=== PATIENT | male | born 1995 | race Hispanic/Latino ===

== ENCOUNTER 2018-11-07 06:46 | Emergency (ER) | payer SELFPAY ==
--- NOTE | 2018-11-07 07:22 | ER ---
Nurse's Notes [facility] Name: Javier Castillo Age: 22 yrs Sex: Male : 1995 Arrival Date: 11/07/2018 Time: 06:51 Bed 13 Private MD: Diagnosis: Urethritis and urethral syndrome Presentation: 11/07 06:59 Presenting complaint: Patient states: Pain with urination x 2 days and blood; States lp1 frequency, low back pain, fever. Transition of care: patient was not received from another setting of care. Onset of symptoms was November 07, 2018. Risk Assessment: Do you want to hurt yourself or someone else? Patient reports no desire to harm self or others. Initial Sepsis Screen: Does the patient meet any 2 criteria? No. Patient's initial sepsis screen is negative. Does the patient have a suspected source of infection? No. Patient's initial sepsis screen is negative. Care prior to arrival: None. 06:59 Method Of Arrival: Ambulatory lp1 06:59 Acuity: MOIRA 3 lp1 Triage Assessment: 07:06 General: Appears in no apparent distress. comfortable, Behavior is calm, cooperative. rb1 Historical: - Allergies: 07:01 Sulfa (Sulfonamide Antibiotics); lp1 - Home Meds: 07:01 None [Active]; lp1 - PMHx: 07:01 None; lp1 - PSHx: 07:01 None; lp1 - Immunization history:: Adult Immunizations up to date. - Social history:: Smoking status: Patient uses tobacco products, denies chronic smoking, but will smoke occasionally. - Ebola Screening: : No symptoms or risks identified at this time. Screenin:02 Abuse screen: Denies threats or abuse. Denies injuries from another. Nutritional lp1 screening: No deficits noted. Tuberculosis screening: No symptoms or risk factors identified. Fall Risk None identified. Assessment: 07:06 General: Appears in no apparent distress. comfortable, Behavior is calm, cooperative. rb1 07:06 Pain: Complains of pain in low back Pain currently is 8 out of 10 on a pain scale. Pain rb1 began x 2 days. Neuro: Level of Consciousness is awake, alert, obeys commands, Oriented to person, place, time, situation. 07:06 Cardiovascular: Capillary refill < 3 seconds is brisk in bilateral fingers. rb1 Respiratory: Airway is patent Respiratory effort is even, unlabored, Respiratory pattern is regular, symmetrical. GI: No signs and/or symptoms were reported involving the gastrointestinal system. : Reports pain with urination, urinary frequency, blood in urine. Derm: Skin is dry, Skin is normal, Skin temperature is warm. 07:56 Reassessment: Discharge pending due to shot time. rb1 Vital Signs: 07:01 BP 154 / 77; Pulse 80; Resp 18; Temp 98.2(O); Pulse Ox 99% on R/A; Weight 99.79 kg; lp1 Height 5 ft. 9 in. (175.26 cm); Pain 0/10; 07:01 Body Mass Index 32.49 (99.79 kg, 175.26 cm) lp1 ED Course: 06:51 Patient arrived in ED. ag3 06:58 Jayne Louise, RN is Primary Nurse. lp1 07:01 Triage completed. lp1 07:02 Arm band placed on right wrist. lp1 07:06 Patient has correct armband on for positive identification. Bed in low position. Call rb1 light in reach. Side rails up X 1. Pulse ox on. NIBP on. 07:08 Dimitrios Grimes MD is Attending Physician. kdr 07:14 [facility] snw 08:08 No provider procedures requiring assistance completed. Patient did not have IV access rb1 during this emergency room visit. Administered Medications: 07:50 Drug: Rocephin (cefTRIAXone) 1 grams Route: IM; Site: left gluteus; rb1 08:08 Follow up: Response: No adverse reaction hb 07:52 Drug: Zithromax 1 grams Route: PO; rb1 08:08 Follow up: Response: No adverse reaction hb 07:52 Drug: Flagyl 2 grams Route: PO; rb1 08:08 Follow up: Response: No adverse reaction hb Outcome: 07:22 Discharge ordered by . snw 08:08 Discharged to home ambulatory. hb 08:08 Condition: stable 08:08 Discharge instructions given to patient, Instructed on discharge instructions, follow up and referral plans. medication usage, Demonstrated understanding of instructions, follow-up care, medications. 08:09 Patient left the ED. hb Signatures: Dimitrios Grimes MD MD kdr Rhianna Al FNP-C [employer]-Csnw Jayne Louise, RN RN lp1 Ruby Bloom, RN RN rb1 Taisha Falcon, RN RN Anny Perez ag3 Corrections: (The following items were deleted from the chart) 09:02 07:06 General: Appears in no apparent distress. comfortable, Behavior is calm, rb1 cooperative, rb1
--- NOTE | 2018-11-07 07:22 | EDPHYS ---
Physician Documentation [facility] Name: Javier Castillo Age: 22 yrs Sex: Male : 1995 Arrival Date: 11/07/2018 Time: 06:51 Bed 13 Private MD: ED Physician Dimitrios Grimes HPI: 11/07 07:33 This 22 yrs old Male presents to ER via Ambulatory with complaints of Pain snw With Urination. 07:33 The patient presents with feels like razor blades are coming out during urination. snw Onset: The symptoms/episode began/occurred suddenly, 2 day(s) ago, and became persistent. Severity of symptoms: At their worst the symptoms were moderate, severe. The patient has not experienced similar symptoms in the past. The patient has not recently seen a physician. recent unprotected intercourse. Historical: - Allergies: 07:01 Sulfa (Sulfonamide Antibiotics); lp1 - Home Meds: 07:01 None [Active]; lp1 - PMHx: 07:01 None; lp1 - PSHx: 07:01 None; lp1 - Immunization history:: Adult Immunizations up to date. - Social history:: Smoking status: Patient uses tobacco products, denies chronic smoking, but will smoke occasionally. - Ebola Screening: : No symptoms or risks identified at this time. ROS: 07:24 Constitutional: Negative for fever, chills, and weight loss, Eyes: Negative for injury, snw pain, redness, and discharge, ENT: Negative for injury, pain, and discharge, Neck: Negative for injury, pain, and swelling, Cardiovascular: Negative for chest pain, palpitations, and edema, Respiratory: Negative for shortness of breath, cough, wheezing, and pleuritic chest pain, Abdomen/GI: Negative for abdominal pain, nausea, vomiting, diarrhea, and constipation, Back: Negative for injury and pain, MS/Extremity: Negative for injury and deformity, Skin: Negative for injury, rash, and discoloration, Neuro: Negative for headache, weakness, numbness, tingling, and seizure, Psych: Negative for depression, anxiety, suicide ideation, homicidal ideation, and hallucinations. 07:24 : Positive for urinary symptoms, burning with urination, Negative for urinary frequency, small amounts, hematuria, penile discharge, penile pain, testicular pain Exam: 07:23 Constitutional: This is a well developed, well nourished patient who is awake, alert, snw and in no acute distress. Head/Face: Normocephalic, atraumatic. Eyes: Pupils equal round and reactive to light, extra-ocular motions intact. Lids and lashes normal. Conjunctiva and sclera are non-icteric and not injected. Cornea within normal limits. Periorbital areas with no swelling, redness, or edema. ENT: Nares patent. No nasal discharge, no septal abnormalities noted. Tympanic membranes are normal and external auditory canals are clear. Oropharynx with no redness, swelling, or masses, exudates, or evidence of obstruction, uvula midline. Mucous membranes moist. Neck: Trachea midline, no thyromegaly or masses palpated, and no cervical lymphadenopathy. Supple, full range of motion without nuchal rigidity, or vertebral point tenderness. No Meningismus. Chest/axilla: Normal chest wall appearance and motion. Nontender with no deformity. No lesions are appreciated. Cardiovascular: Regular rate and rhythm with a normal S1 and S2. No gallops, murmurs, or rubs. Normal PMI, no JVD. No pulse deficits. Respiratory: Lungs have equal breath sounds bilaterally, clear to auscultation and percussion. No rales, rhonchi or wheezes noted. No increased work of breathing, no retractions or nasal flaring. Abdomen/GI: Soft, non-tender, with normal bowel sounds. No distension or tympany. No guarding or rebound. No evidence of tenderness throughout. Back: No spinal tenderness. No costovertebral tenderness. Full range of motion. Skin: Warm, dry with normal turgor. Normal color with no rashes, no lesions, and no evidence of cellulitis. MS/ Extremity: Pulses equal, no cyanosis. Neurovascular intact. Full, normal range of motion. Neuro: Awake and alert, GCS 15, oriented to person, place, time, and situation. Cranial nerves II-XII grossly intact. Motor strength 5/5 in all extremities. Sensory grossly intact. Cerebellar exam normal. Normal gait. Psych: Awake, alert, with orientation to person, place and time. Behavior, mood, and affect are within normal limits. Vital Signs: 07:01 BP 154 / 77; Pulse 80; Resp 18; Temp 98.2(O); Pulse Ox 99% on R/A; Weight 99.79 kg; lp1 Height 5 ft. 9 in. (175.26 cm); Pain 0/10; 07:01 Body Mass Index 32.49 (99.79 kg, 175.26 cm) lp1 MDM: 07:14 Patient medically screened. snw 07:25 Data reviewed: vital signs, nurses notes. Data interpreted: Pulse oximetry: on room air snw is 99 %. Interpretation: normal. Counseling: I had a detailed discussion with the patient and/or guardian regarding: the historical points, exam findings, and any diagnostic results supporting the discharge/admit diagnosis, the presence of at least one elevated blood pressure reading (>120/80) during this emergency department visit, the need for outpatient follow up, to return to the emergency department if symptoms worsen or persist or if there are any questions or concerns that arise at home. Special discussion: Based on the history and exam findings, there is no indication for further emergent testing or inpatient evaluation. STI clinic. Administered Medications: 07:50 Drug: Rocephin (cefTRIAXone) 1 grams Route: IM; Site: left gluteus; rb1 08:08 Follow up: Response: No adverse reaction hb 07:52 Drug: Zithromax 1 grams Route: PO; rb1 08:08 Follow up: Response: No adverse reaction hb 07:52 Drug: Flagyl 2 grams Route: PO; rb1 08:08 Follow up: Response: No adverse reaction hb Disposition: 11:48 Co-signature as Attending Physician, Dimitrios Grimes MD I agree with the assessment and kdr plan of care. Disposition: 11/07/18 07:22 Discharged to Home. Impression: Urethritis and urethral syndrome. - Condition is Stable. - Discharge Instructions: Sexually Transmitted Disease, Urethritis, Adult, Safe Sex. - Medication Reconciliation Form, Thank You Letter, Antibiotic Education, Prescription Opioid Use form. - Follow up: Private Physician; When: 2 - 3 days; Reason: Recheck today's complaints, Continuance of care, Re-evaluation by your physician. Follow up: Emergency Department; When: As needed; Reason: Worsening of condition. Signatures: Dimitrios Grimes MD MD kdr Therrien, Shelly, REAL ESTATE SALESPERSON-C REAL ESTATE SALESPERSON-Csnw Jayne Louise RN RN lp1 Ruby Bloom, RN RN rb1 Taisha Falcon RN RN hb Corrections: (The following items were deleted from the chart) 08:09 07:22 11/07/2018 07:22 Discharged to Home. Impression: Urethritis and urethral hb syndrome. Condition is Stable. Forms are Medication Reconciliation Form, Thank You Letter, Antibiotic Education, Prescription Opioid Use. Follow up: Private Physician; When: 2 - 3 days; Reason: Recheck today's complaints, Continuance of care, Re-evaluation by your physician. Follow up: Emergency Department; When: As needed; Reason: Worsening of condition. snw
[2018-11-07] MEDS ORDERED: CEFTRIAXONE 1000 MG/VIAL ONE (07:55)
[2018-11-07] MEDS ORDERED: metroNIDAZOLE 500 MG TABLET ONE (07:55)
[2018-11-07] MEDS ORDERED: AZITHROMYCIN 250 MG TAB ONE (07:58)
[2018-11-07 08:15] VITALS: BP 154/77; TEMP 98.2; O2SAT 99
== END 2018-11-07 08:09 | disposition home or self-care (01) ==
LOC: ER 06:46
DX: N34.3 Urethral syndrome, unspecified (principal); N34.2 Other urethritis; Z72.0 Tobacco use; Z88.2 Allergy status to sulfonamides
CPT/HCPCS: 96372; 99283

== ENCOUNTER 2019-04-07 14:35 | Emergency (ER) | payer SELFPAY ==
--- NOTE | 2019-04-07 16:41 | EDPHYS ---
Physician Documentation [facility] Name: Javier Castillo Age: 23 yrs Sex: Male : 1995 Arrival Date: 04/07/2019 Time: 14:38 Bed Treatment Private MD: ED Physician Valente Cardenas HPI: 04/07 16:47 This 23 yrs old Male presents to ER via Ambulatory with complaints of Chest kb Pain, muscle pain. 16:47 The patient or guardian reports chest pain that is located primarily in the anterior kb chest wall, right. The pain does not radiate. Associated signs and symptoms: The patient has no apparent associated signs or symptoms. The chest pain is described as sharp. Duration: The patient or guardian reports multiple episodes. Modifying factors: The symptoms are alleviated by remaining still, rest, the symptoms are aggravated by activity, movement. Severity of pain: At its worst the pain was mild moderate in the emergency department the pain is unchanged. The patient has not experienced similar symptoms in the past. The patient has not recently seen a physician. Pt reports he started having right-sided chest pain while lifting weights a few weeks ago. States it got worse every time he lifted so he quit lifting for 2 weeks. Went back to the gym 2 days ago and it started hurting again. States it only hurts when he raises his arm and stretches his pec muscle or lifts weights. . Historical: - Allergies: 14:45 Sulfa (Sulfonamide Antibiotics); hj - PMHx: 14:45 None; hj - PSHx: 14:45 None; hj - Immunization history:: Adult Immunizations up to date. - Social history:: Smoking status: Patient/guardian denies using tobacco, Patient/guardian denies using alcohol. - Ebola Screening: : Patient negative for fever greater than or equal to 101.5 degrees Fahrenheit, and additional compatible Ebola Virus Disease symptoms Patient denies exposure to infectious person Patient denies travel to an Ebola-affected area in the 21 days before illness onset. ROS: 16:45 Constitutional: Negative for fever, chills, and weight loss, ENT: Negative for injury, kb pain, and discharge, Neck: Negative for injury, pain, and swelling, Respiratory: Negative for shortness of breath, cough, wheezing, and pleuritic chest pain, Abdomen/GI: Negative for abdominal pain, nausea, vomiting, diarrhea, and constipation, Back: Negative for injury and pain, : Negative for injury, bleeding, discharge, and swelling, MS/Extremity: Negative for injury and deformity, Skin: Negative for injury, rash, and discoloration, Neuro: Negative for headache, weakness, numbness, tingling, and seizure. 16:45 Cardiovascular: Positive for chest pain, with movement, of the anterior aspect of right upper chest. Exam: 16:45 Constitutional: This is a well developed, well nourished patient who is awake, alert, kb and in no acute distress. Head/Face: Normocephalic, atraumatic. Neck: Trachea midline, no thyromegaly or masses palpated, and no cervical lymphadenopathy. Supple, full range of motion without nuchal rigidity, or vertebral point tenderness. No Meningismus. Chest/axilla: Normal chest wall appearance and motion. Nontender with no deformity. No lesions are appreciated. Cardiovascular: Regular rate and rhythm with a normal S1 and S2. No gallops, murmurs, or rubs. Normal PMI, no JVD. No pulse deficits. Respiratory: Lungs have equal breath sounds bilaterally, clear to auscultation and percussion. No rales, rhonchi or wheezes noted. No increased work of breathing, no retractions or nasal flaring. Abdomen/GI: Soft, non-tender, with normal bowel sounds. No distension or tympany. No guarding or rebound. No evidence of tenderness throughout. Skin: Warm, dry with normal turgor. Normal color with no rashes, no lesions, and no evidence of cellulitis. MS/ Extremity: Pulses equal, no cyanosis. Neurovascular intact. Full, normal range of motion. Neuro: Awake and alert, GCS 15, oriented to person, place, time, and situation. Cranial nerves II-XII grossly intact. Motor strength 5/5 in all extremities. Sensory grossly intact. Cerebellar exam normal. Normal gait. 16:46 ECG was reviewed by the Attending Physician. Vital Signs: 14:43 BP 133 / 56; Pulse 61; Resp 18; Temp 98.6(TE); Pulse Ox 100% on R/A; Weight 90.72 kg; hj Height 5 ft. 10 in. (177.80 cm); Pain 5/10; 16:48 BP 128 / 60; Pulse 65; Resp 18; Pulse Ox 100% on R/A; hj 14:43 Body Mass Index 28.70 (90.72 kg, 177.80 cm) MDM: 15:45 Patient medically screened. kb 16:46 Data reviewed: vital signs, nurses notes. Data interpreted: Pulse oximetry: on room air kb is 100 %. Interpretation: normal. Counseling: I had a detailed discussion with the patient and/or guardian regarding: the historical points, exam findings, and any diagnostic results supporting the discharge/admit diagnosis, radiology results, the need for outpatient follow up, a family practitioner, to return to the emergency department if symptoms worsen or persist or if there are any questions or concerns that arise at home. 04/07 15:02 Order name: Chest Pa And Lat (2 Views) XRAY snw 04/07 14:41 Order name: EKG - Nurse/Tech; Complete Time: 16:41 EC:46 Rate is 49 beats/min. Rhythm is regular, Sinus bradycardia. QRS [place] is Normal. MO kb interval is normal at 156 msec. QRS interval is normal at 90 msec. QT interval is normal at 364 msec. Clinical impression: Sinus bradycardia. Interpreted by me. Reviewed by me. Administered Medications: No medications were administered Disposition: 04/08 07:36 Co-signature as Attending Physician, Valente Cardenas MD I agree with the assessment and viv plan of care. Disposition: 04/07/19 16:40 Discharged to Home. Impression: Other chest pain - right chest wall pain, musculoskeletal. - Condition is Stable. - Discharge Instructions: Chest Wall Pain, [id number], Muscle Strain, [id number]. - Medication Reconciliation Form, Thank You Letter, Antibiotic Education, Prescription Opioid Use, Work release form form. - Follow up: Emergency Department; When: As needed; Reason: Worsening of condition. Follow up: Private Physician; When: 2 - 3 days; Reason: Recheck today's complaints, Continuance of care, Re-evaluation by your physician. Signatures: Dispatcher [employer] Jina Singh, CENTRAL OFFICE TROUBLE SHOOTER-C CENTRAL OFFICE TROUBLE SHOOTER-Valente Medina MD MD cha Joaquin, Henry, RN RN hj Corrections: (The following items were deleted from the chart) 04/07 16:50 16:40 04/07/2019 16:40 Discharged to Home. Impression: Other chest pain - right chest hj wall pain, musculoskeletal. Condition is Stable. Forms are Medication Reconciliation Form, Thank You Letter, Antibiotic Education, Prescription Opioid Use. Follow up: Emergency Department; When: As needed; Reason: Worsening of condition. Follow up: Private Physician; When: 2 - 3 days; Reason: Recheck today's complaints, Continuance of care, Re-evaluation by your physician. kb
--- NOTE | 2019-04-07 16:41 | ER ---
Nurse's Notes [facility] Name: Javier Castillo Age: 23 yrs Sex: Male : 1995 Arrival Date: 04/07/2019 Time: 14:38 Bed Treatment Private MD: Diagnosis: Other chest pain-right chest wall pain, musculoskeletal Presentation: 04/07 14:42 Presenting complaint: Patient states: i lifted weights a few weeks ago and my R upper hj chest hurts; so i didn't lift weights for a while when i came back to the gymn the pain is till there; denies SOB;. Transition of care: patient was not received from another setting of care. Onset of symptoms was April 07, 2019. Risk Assessment: Do you want to hurt yourself or someone else? Patient reports no desire to harm self or others. Initial Sepsis Screen: Does the patient meet any 2 criteria? No. Patient's initial sepsis screen is negative. Does the patient have a suspected source of infection? No. Patient's initial sepsis screen is negative. Care prior to arrival: None. 14:42 Method Of Arrival: Ambulatory 14:42 Acuity: MOIRA 4 hj Triage Assessment: 15:48 General: Appears in no apparent distress. uncomfortable, Behavior is calm, cooperative, hj appropriate for age. Pain: Complains of pain in anterior aspect of right upper chest. Cardiovascular: Capillary refill < 3 seconds Patient's skin is warm and dry. Historical: - Allergies: 14:45 Sulfa (Sulfonamide Antibiotics); hj - PMHx: 14:45 None; hj - PSHx: 14:45 None; hj - Immunization history:: Adult Immunizations up to date. - Social history:: Smoking status: Patient/guardian denies using tobacco, Patient/guardian denies using alcohol. - Ebola Screening: : Patient negative for fever greater than or equal to 101.5 degrees Fahrenheit, and additional compatible Ebola Virus Disease symptoms Patient denies exposure to infectious person Patient denies travel to an Ebola-affected area in the 21 days before illness onset. Screenin:48 Abuse screen: Denies threats or abuse. Denies injuries from another. Nutritional hj screening: No deficits noted. Tuberculosis screening: No symptoms or risk factors identified. Fall Risk None identified. Assessment: 15:48 Pain: Pain does not radiate. Pain began. hj 15:48 General: Appears in no apparent distress. uncomfortable, Behavior is calm, cooperative, hj appropriate for age. Neuro: Level of Consciousness is awake, alert, obeys commands, Oriented to person, place, time, situation, Appropriate for age. Cardiovascular: Capillary refill < 3 seconds Patient's skin is warm and dry. Respiratory: Airway is patent Respiratory effort is even, unlabored, Respiratory pattern is regular, symmetrical. GI: No signs and/or symptoms were reported involving the gastrointestinal system. : No signs and/or symptoms were reported regarding the genitourinary system. EENT: No signs and/or symptoms were reported regarding the EENT system. Derm: No signs and/or symptoms reported regarding the dermatologic system. Musculoskeletal: Reports pain in anterior aspect of right upper chest. 16:38 Reassessment: XRAY taken;. hj Vital Signs: 14:43 BP 133 / 56; Pulse 61; Resp 18; Temp 98.6(TE); Pulse Ox 100% on R/A; Weight 90.72 kg; hj Height 5 ft. 10 in. (177.80 cm); Pain 5/10; 16:48 BP 128 / 60; Pulse 65; Resp 18; Pulse Ox 100% on R/A; hj 14:43 Body Mass Index 28.70 (90.72 kg, 177.80 cm) hj ED Course: 14:38 Patient arrived in ED. rg4 14:43 Triage completed. hj 14:43 Arm band placed on right wrist. hj 15:44 Jina Soot FNP-C is [facility]. kb 15:44 Valente Cardenas MD is Attending Physician. kb 15:46 Hiro Centeno RN is Primary Nurse. hj 15:48 Patient has correct armband on for positive identification. Bed in low position. Call hj light in reach. Side rails up X 1. Pulse ox on. NIBP on. 15:49 Patient maintains SpO2 saturation greater than 95% on room air. hj 16:24 EKG done, by vocational rehabilitation technician. reviewed by Jina MATTHEWS. sm3 16:48 No provider procedures requiring assistance completed. Patient did not have IV access hj during this emergency room visit. Administered Medications: No medications were administered Outcome: 16:40 Discharge ordered by . kb 16:48 Discharged to home ambulatory. hj 16:48 Condition: stable 16:48 Discharge instructions given to patient, Instructed on discharge instructions, follow up and referral plans. Demonstrated understanding of instructions, follow-up care. 16:50 Patient left the ED. Signatures: Jina Soto FNP-C FNP-Hiro Meraz, RN RN Ariadne Villafuerte rg4 Haylie Murphy sm3 Corrections: (The following items were deleted from the chart) 14:45 14:43 Pulse 61bpm; Resp 18bpm; Pulse Ox 100% RA; Temp 98.6F Temporal; 90.72 kg; Height hj 5 ft. 10 in.; BMI: 28.7; Pain 5/10; hj 15:12 14:42 Acuity: MOIRA 4 hj hj 15:37 14:42 Acuity: MOIRA 3 hj hj 15:48 14:42 Presenting complaint: Patient states: i lifted weights a few weeks ago and my R hj upper chest hurts; so i didn't left weights for a while when i came back to the gymn the pain is till there; denies SOB; hj
--- NOTE | 2019-04-07 16:57 | RAD REPORT ---
EXAM DESCRIPTION: Nik Bates (2 Views)04/07/2019 4:36 pm CLINICAL HISTORY: Chest pain COMPARISON: 2012 FINDINGS: The lungs appear clear of acute infiltrate. The heart is normal size IMPRESSION: No acute abnormalities displayed
[2019-04-07 17:12] VITALS: TEMP 98.6; O2SAT 100
[2019-04-07 17:13] VITALS: BP 128/60
--- NOTE | 2019-04-08 11:38 | EKG ---
Test Date: 2019-04-07 Test Time: 16:22:59 Health Information Specialist: CECILLE MEASUREMENT RESULTS: Intervals: Rate: 49 FL: 156 QRSD: 90 QT: 364 QTc: 328 [place]: P: 38 FL: 156 QRS: 78 T: 38 INTERPRETIVE STATEMENTS: Marked sinus bradycardia Abnormal ECG Compared to ECG 04/25/2017 02:58:03 Sinus rhythm no longer present Electronically Signed On 04-08-19 11:36:02 CDT by Jarek Pastor
== END 2019-04-07 16:50 | disposition home or self-care (01) ==
LOC: ER 14:35
DX: M79.18 Myalgia, other site (principal); Z88.2 Allergy status to sulfonamides
CPT/HCPCS: 71046; 93005; 99284

== ENCOUNTER 2019-05-01 07:58 | Emergency (ER) | payer SELFPAY ==
[2019-05-01 09:03] LABS: Absolute Lymphocytes (CBC) 1.9 K/uL (0.7-4.9); Basophils % 0.9 % (0-1.3); Eosinophils % 2.2 % (0-4.4); Hematocrit 48.5 % (39.6-49.0); Lymphocytes % 35.8 % (15.3-44.8); Monocytes % 7.8 % (3.3-12.3)
[2019-05-01 09:07] LABS: Protime INR 1.05
[2019-05-01 09:16] LABS: Albumin 3.8 g/dL (3.4-5.0); Bilirubin Direct 0.1 mg/dL (0-0.2); Bilirubin Total 0.4 mg/dL (0.2-1.0); Magnesium 2.3 mg/dL (1.8-2.4); Potassium 4.3 mmol/L (3.5-5.1)
--- NOTE | 2019-05-01 10:57 | RAD REPORT ---
EXAM DESCRIPTION: CT - Abdomen Pelvis W Contrast - 05/01/2019 10:41 am CLINICAL HISTORY: Abdominal pain. Hematochezia COMPARISON: 2017 TECHNIQUE: Computed axial tomography of the abdomen and pelvis was obtained. 100 cc Isovue-300 is ad ministered intravenously. Oral contrast was given. All CT scans are performed using dose optimization technique as appropriate and may include automated exposure control or mA/KV adjustment according to patient size. FINDINGS: The pancreas has a heterogeneous density but is unchanged from 2015. Presumably this is not significa nt. The liver, spleen, pancreas, adrenals and kidneys appear unremarkable. The appendix is normal caliber. There is no evidence of diverticulitis IMPRESSION: No acute abnormality displayed
--- NOTE | 2019-05-01 11:22 | ER ---
Nurse's Notes [facility] Name: Javier Castillo Age: 23 yrs Sex: Male : 1995 Arrival Date: 05/01/2019 Time: 08:01 Bed 8 Private MD: None, None Diagnosis: Unspecified abdominal pain Presentation: 05/01 08:05 Presenting complaint: Patient states: intermittent lower abd pain and rectal bleeding x aa5 2 years ago. Pt states "I bleed for like a month and then it stops and comes back again". Pt denies nausea, denies vomiting. 08:05 Transition of care: patient was not received from another setting of care. Onset of aa5 symptoms was 2016. Risk Assessment: Do you want to hurt yourself or someone else? Patient reports no desire to harm self or others. Initial Sepsis Screen: Does the patient meet any 2 criteria? No. Patient's initial sepsis screen is negative. Does the patient have a suspected source of infection? No. Patient's initial sepsis screen is negative. Care prior to arrival: None. 08:05 Acuity: MOIRA 3 aa5 08:05 Method Of Arrival: Ambulatory aa5 Historical: - Allergies: 08:05 Sulfa (Sulfonamide Antibiotics); aa5 - Home Meds: 08:05 None [Active]; aa5 - PMHx: 08:05 Asthma; aa5 - PSHx: 08:05 None; aa5 - Immunization history:: Flu vaccine is not up to date. - Social history:: Smoking status: Patient uses tobacco products, smokes one-half pack cigarettes per day, Patient uses alcohol, occasionally. - Ebola Screening: : No symptoms or risks identified at this time. Screenin:09 Abuse screen: Denies threats or abuse. Nutritional screening: No deficits noted. aa5 Tuberculosis screening: No symptoms or risk factors identified. Fall Risk None identified. Assessment: 08:05 General: Appears comfortable, Behavior is calm, cooperative. Pain: Complains of pain in aa5 right lower quadrant and left lower quadrant Pain does not radiate. Pain currently is 7 out of 10 on a pain scale. Quality of pain is described as crampy, Pain began 2 years ago Is intermittent. Neuro: Level of Consciousness is awake, alert, obeys commands, Oriented to person, place, time, situation. Cardiovascular: Heart tones S1 S2 present Rhythm is regular. Respiratory: Airway is patent Respiratory effort is even, unlabored, Respiratory pattern is regular, symmetrical. GI: Abdomen is round non-distended, Bowel sounds present X 4 quads. Abd is soft and non tender X 4 quads. Reports rectal bleeding, Reports last rectal bleeding episode was this morning. Patient currently denies nausea, vomiting. : No signs and/or symptoms were reported regarding the genitourinary system. EENT: No signs and/or symptoms were reported regarding the EENT system. Derm: Skin is pink, warm \\T\\ dry. Musculoskeletal: Range of motion: intact in all extremities. 08:54 Reassessment: Pt finished CT oral contrast, CT was notified. . aa5 09:15 Reassessment: Pt resting in bed with eyes closed, respirations even and unlabored, skin aa5 is pink/warm/dry. Awaiting CT scan, pt notified of wait time. . 10:11 Reassessment: Patient is alert, oriented x 3, equal unlabored respirations, skin aa5 warm/dry/pink. Pt ambulatory to restroom. Awaiting CT scan. 10:35 Reassessment: Pt to CT via wheelchair . aa5 11:53 Reassessment: Patient is alert, oriented x 3, equal unlabored respirations, skin aa5 warm/dry/pink. Vital Signs: 08:06 BP 140 / 79; Pulse 66; Resp 16 S; Temp 98.3(O); Pulse Ox 100% on R/A; Weight 95.25 kg aa5 (R); Height 5 ft. 10 in. (177.80 cm) (R); Pain 7/10; 09:15 BP 110 / 61; Pulse 49; Resp 16 S; Pulse Ox 98% on R/A; aa5 11:53 BP 122 / 63; Pulse 55; Resp 18 S; Temp 98.0(TE); Pulse Ox 100% on R/A; Pain 6/10; aa5 08:06 Body Mass Index 30.13 (95.25 kg, 177.80 cm) aa5 ED Course: 08:01 Patient arrived in ED. mr 08:02 None, None is Private Physician. mr 08:05 Valente Fletcher [facility]. cp 08:05 Miguel Bran MD is Attending Physician. cp 08:05 Arm band placed on Patient placed in an exam room, on a stretcher. aa5 08:05 Patient has correct armband on for positive identification. Bed in low position. Call aa5 light in reach. Side rails up X 1. 08:10 Mora Lima, RN is Primary Nurse. aa5 08:12 Triage completed. aa5 08:45 Initial lab(s) drawn, by vt, sent to lab. Inserted saline lock: 20 gauge in right 3 antecubital area, using aseptic technique. Blood collected. 08:55 Oral contrast reported to be complete. vm2 09:57 Basic Metabolic Panel Sent. sv 09:57 CBC with Diff Sent. sv 09:57 Creatinine for Radiology Sent. sv 09:57 Hepatic Function Sent. sv 09:57 Lipase Sent. sv 10:42 CT Abd/Pelvis - PO and IV Contrast In Process Unspecified. EDMS 11:21 Kuldeep Wilder MD is Referral Physician. cp 11:53 No provider procedures requiring assistance completed. IV discontinued, intact, aa5 bleeding controlled, No redness/swelling at site. Pressure dressing applied. Administered Medications: 11:52 Drug: Bentyl 20 mg Route: PO; aa5 11:52 Follow up: Response: Medication administered at discharge. aa5 Outcome: 11:21 Discharge ordered by MD. cp 11:53 Discharged to home ambulatory. aa5 11:53 Condition: good 11:53 Discharge instructions given to patient, Instructed on discharge instructions, follow up and referral plans. medication usage, Demonstrated understanding of instructions, follow-up care, medications, Prescriptions given X 2. 11:54 Patient left the ED. aa5 Signatures: Dispatcher [employer] EDLA Mala Cope RN RN sv Rivera, Mary mr Mora Lima RN RN aa5 Valente Fletcher PA PA cp McGuire, [facility] Corrections: (The following items were deleted from the chart) 10:45 09:10 BP 110 / 61; Pulse 49bpm; Resp 16bpm; Spontaneous; Pulse Ox 98% RA; aa5 aa5
--- NOTE | 2019-05-01 11:23 | EDPHYS ---
Physician Documentation [facility] Name: Javier Castillo Age: 23 yrs Sex: Male : 1995 Arrival Date: 05/01/2019 Time: 08:01 Bed 8 Private MD: None, None ED Physician Miguel Bran HPI: 05/01 08:40 This 23 yrs old Male presents to ER via Ambulatory with complaints of cp Abdominal Pain, Rectal Bleeding. 08:40 The patient presents with abdominal pain in the lower abdomen. cp 08:40 Onset: The symptoms/episode began/occurred intermittent times 2 years, became cp persistent 2 weeks ago. The symptoms do not radiate. Associated signs and symptoms: Pertinent positives: blood in stools, constipation, Pertinent negatives: diarrhea, fever, testicular pain, vomiting, weight loss. 08:40 The symptoms are described as crampy. cp Historical: - Allergies: 08:05 Sulfa (Sulfonamide Antibiotics); aa5 - Home Meds: 08:05 None [Active]; aa5 - PMHx: 08:05 Asthma; aa5 - PSHx: 08:05 None; aa5 - Immunization history:: Flu vaccine is not up to date. - Social history:: Smoking status: Patient uses tobacco products, smokes one-half pack cigarettes per day, Patient uses alcohol, occasionally. - Ebola Screening: : No symptoms or risks identified at this time. ROS: 08:45 Constitutional: Negative for body aches, chills, fever, poor PO intake, weight loss. cp 08:45 Eyes: Negative for injury, pain, redness, and discharge. cp 08:45 ENT: Negative for drainage from ear(s), ear pain, sore throat, difficulty swallowing, difficulty handling secretions. 08:45 Cardiovascular: Negative for chest pain, palpitations. 08:45 Respiratory: Negative for cough, shortness of breath, wheezing. 08:45 Abdomen/GI: Positive for constipation, abdominal cramps, rectal bleeding, Negative for vomiting, diarrhea, black/tarry stool. 08:45 Back: Negative for radiated pain. 08:45 : Negative for urinary symptoms, testicular pain 08:45 All other systems are negative. Exam: 08:55 Constitutional: The patient appears in no acute distress, alert, awake, non-toxic, well cp developed, well nourished. 08:55 Head/Face: Normocephalic, atraumatic. cp 08:55 Eyes: Periorbital structures: appear normal, Conjunctiva: normal, no exudate, no injection, Sclera: no appreciated abnormality, Lids and lashes: appear normal, bilaterally. 08:55 ENT: External ear(s): are unremarkable, Nose: is normal, Mouth: Lips: moist, Oral mucosa: pink and intact, moist, Posterior pharynx: Airway: no evidence of obstruction, patent. 08:55 Chest/axilla: Inspection: normal, Palpation: is normal, no crepitus, no tenderness. 08:55 Cardiovascular: Rate: normal, Rhythm: regular, Edema: is not appreciated, JVD: is not appreciated. 08:55 Respiratory: the patient does not display signs of respiratory distress, Respirations: normal, no use of accessory muscles, no retractions, no splinting, no tachypnea, labored breathing, is not present, Breath sounds: are clear throughout, no decreased breath sounds, no stridor, no wheezing. 08:55 Abdomen/GI: Inspection: abdomen appears normal, Bowel sounds: active, all quadrants, Palpation: soft, in all quadrants, nontender, in the right lower quadrant and left lower quadrant, rebound tenderness, is not appreciated, involuntary guarding, is not appreciated, Rectal exam: Stool: brown, guaiac positive. Vital Signs: 08:06 BP 140 / 79; Pulse 66; Resp 16 S; Temp 98.3(O); Pulse Ox 100% on R/A; Weight 95.25 kg aa5 (R); Height 5 ft. 10 in. (177.80 cm) (R); Pain 7/10; 09:15 BP 110 / 61; Pulse 49; Resp 16 S; Pulse Ox 98% on R/A; aa5 11:53 BP 122 / 63; Pulse 55; Resp 18 S; Temp 98.0(TE); Pulse Ox 100% on R/A; Pain 6/10; aa5 08:06 Body Mass Index 30.13 (95.25 kg, 177.80 cm) aa5 MDM: 08:10 Patient medically screened. cp 09:00 Differential diagnosis: diverticulitis, gastritis, pancreatitis, Peptic Ulcer Disease, cp Perf. Duodenal Ulcer, Perf. Gastric Ulcer, colitis. 11:20 Data reviewed: vital signs, nurses notes, lab test result(s), radiologic studies, CT cp scan. 11:20 Counseling: I had a detailed discussion with the patient and/or guardian regarding: the cp historical points, exam findings, and any diagnostic results supporting the discharge/admit diagnosis, lab results, radiology results, to return to the emergency department if symptoms worsen or persist or if there are any questions or concerns that arise at home. Response to treatment: the patient's symptoms have markedly improved after treatment, and as a result, I will discharge patient. Special discussion: Based on the patient's Hx, exam, and Dx evaluation, there is no indication for emergent surgery or inpatient Tx. It is understood by the patient/guardian that if the Sx's persist or worsen they need to return immediately for re-evaluation. 05/01 08:36 Order name: Basic Metabolic Panel cp 05/01 08:36 Order name: CBC with Diff cp 05/01 08:36 Order name: Creatinine for Radiology cp 05/01 08:36 Order name: Hepatic Function cp 05/01 08:36 Order name: Lipase cp 05/01 08:36 Order name: PT-INR; Complete Time: 09:53 cp 05/01 08:36 Order name: Ptt, Activated; Complete Time: 09:53 cp 05/01 08:36 Order name: Magnesium; Complete Time: 09:53 cp 05/01 08:36 Order name: CT Abd/Pelvis - PO and IV Contrast; Complete Time: 11:10 cp 05/01 08:37 Order name: Basic Metabolic Panel; Complete Time: 09:53 EDMS 05/01 09:53 Interpretation: Normal except: GFR 89. cp 05/01 08:37 Order name: CBC with Automated Diff; Complete Time: 09:53 EDMS 05/01 09:53 Interpretation: Normal except: RBC 5.50. cp 05/01 08:37 Order name: Creatinine (Radiology Only); Complete Time: 09:53 EDMS 05/01 08:37 Order name: Liver (Hepatic) Function; Complete Time: 09:53 EDMS 05/01 11:10 Interpretation: Normal except: AST 14. cp 05/01 08:37 Order name: Lipase; Complete Time: 09:53 EDMS 05/01 08:36 Order name: IV Saline Lock; Complete Time: 08:51 cp 05/01 08:36 Order name: Labs collected and sent; Complete Time: 08:51 cp Administered Medications: 11:52 Drug: Bentyl 20 mg Route: PO; aa5 11:52 Follow up: Response: Medication administered at discharge. aa5 Disposition: 05/01/19 11:21 Discharged to Home. Impression: Unspecified abdominal pain. - Condition is Stable. - Discharge Instructions: Abdominal Pain, Adult. - Prescriptions for Bentyl 20 mg Oral Tablet - take 1 tablet by ORAL route every 6 hours As needed; 30 tablet. Zofran 4 mg Oral Tablet - take 1 tablet by ORAL route every 12 hours As needed; 20 tablet. - Medication Reconciliation Form, Thank You Letter, Antibiotic Education, Prescription Opioid Use form. - Work release form (05/01/19 11:55). sv - Follow up: Kuldeep Wilder MD; When: 2 - 3 days; Reason: Recheck today's complaints. - Problem is an ongoing problem. - Symptoms have improved. Addendum: 05/02/2019 17:04 Co-signature as Attending Physician, Miguel Bran MD. g s Signatures: Dispatcher [employer] EDCT Mora Lima RN RN aa5 Valente Fletcher PA PA Miguel Bran MD MD Mala Cope RN sv Corrections: (The following items were deleted from the chart) 05/01 11:54 11:21 05/01/2019 11:21 Discharged to Home. Impression: Unspecified abdominal pain. aa5 Condition is Stable. Forms are Medication Reconciliation Form, Thank You Letter, Antibiotic Education, Prescription Opioid Use. Follow up: Kuldeep Wilder; When: 2 - 3 days; Reason: Recheck today's complaints. Problem is an ongoing problem. Symptoms have improved. cp
[2019-05-01] MEDS ORDERED: DICYCLOMINE HCL 10 MG CAP ONE (12:00)
[2019-05-01 12:18] VITALS: TEMP 98.3
[2019-05-01 12:19] VITALS: BP 110/61; O2SAT 98
== END 2019-05-01 11:54 | disposition home or self-care (01) ==
LOC: ER 07:58
DX: R10.30 Lower abdominal pain, unspecified (principal); F17.210 Nicotine dependence, cigarettes, uncomplicated; Z88.2 Allergy status to sulfonamides
CPT/HCPCS: 36415; 74177; 80048; 80076; 83690; 83735; 85025; 85610; 85730; 99284; Q9967

== ENCOUNTER 2022-05-11 23:08 | Emergency (ER) | payer SELFPAY ==
[2022-05-12 01:57] LABS: Absolute Lymphocytes (CBC) 0.5 K/uL (0.7-4.9); Hematocrit 45.7 % (39.6-49.0); Lymphocytes % 6.5 % (15.3-44.8); MCV 91.7 fL (80-100); MPV 7.6 fL (7.6-11.3); RBC Red Blood Cell Count 4.98 M/uL (4.33-5.43)
[2022-05-12 02:03] LABS: Urine Blood Negative (Negative); Urine Glucose Negative (Negative); Urine Protein Negative (Negative); Urine Specific Gravity >=1.030 (1.005-1.030)
[2022-05-12] MEDS ORDERED: NA CHLORIDE 0.9% 0 ML ONE (02:03)
[2022-05-12] MEDS ORDERED: ONDANSETRON 4 MG/2 ML VIAL ONE (02:03)
[2022-05-12 02:13] LABS: Albumin 3.3 g/dL (3.4-5.0); Bilirubin Total 0.3 mg/dL (0.2-1.0); Potassium 4.1 mmol/L (3.5-5.1); Protein, Total 6.6 g/dL (6.4-8.2)
[2022-05-12] MEDS ORDERED: ACETAMINOPHEN 500 MG TAB ONE (02:22)
[2022-05-12] MEDS ORDERED: CIPROFLOXACIN 400mg IV 400 MG/200 ML BAG IV ONE (02:23)
[2022-05-12] MEDS ORDERED: METRONIDAZOLE 500mg IVPB 500 MG/100 ML BAG IV ONE (02:23)
--- NOTE | 2022-05-12 03:41 | ER ---
Nurse's Notes [facility] Name: Javier Castillo Age: 26 yrs Sex: Male : 1995 Arrival Date: 05/11/2022 Time: 23:10 Bed 6 Private MD: Diagnosis: Abdominal tenderness;Fever, unspecified;Diarrhea, unspecified;Other specified noninfective gastroenteritis and colitis-PANCOLITIS Presentation: 05/11 23:19 Chief complaint: Patient states: Abd pain began two days ago. N/D, fever, body aches. ld1 Coronavirus screen: Client presents with at least one sign or symptom that may indicate coronavirus-19. Standard/surgical mask placed on the client. Ebola Screen: No symptoms or risks identified at this time. Initial Sepsis Screen: Does the patient meet any 2 criteria? No. Patient's initial sepsis screen is negative. Does the patient have a suspected source of infection? No. Patient's initial sepsis screen is negative. Risk Assessment: Do you want to hurt yourself or someone else? Patient reports no desire to harm self or others. Onset of symptoms was May 11, 2022. 23:19 Method Of Arrival: Ambulatory ld1 23:19 Acuity: MOIRA 3 ld1 Triage Assessment: 23:20 General: Appears in no apparent distress. comfortable, Behavior is calm, cooperative, ld1 appropriate for age. Pain: Complains of pain in abdomen Pain does not radiate. Pain currently is 8 out of 10 on a pain scale. Quality of pain is described as throbbing. EENT: No signs and/or symptoms were reported regarding the EENT system. Neuro: Level of Consciousness is awake, alert, obeys commands, Oriented to person, place, time, situation. Cardiovascular: Capillary refill < 3 seconds Patient's skin is warm and dry. Respiratory: Airway is patent Respiratory effort is even, unlabored. GI: Abdomen is round non-distended, Reports lower abdominal pain, upper abdominal pain, diarrhea, nausea. : No signs and/or symptoms were reported regarding the genitourinary system. Derm: No signs and/or symptoms reported regarding the dermatologic system. Musculoskeletal: No signs and/or symptoms reported regarding the musculoskeletal system. Historical: - Allergies: 23:20 Sulfa (Sulfonamide Antibiotics); ld1 - PMHx: 23:20 Asthma; ld1 - PSHx: 23:20 None; ld1 - Immunization history:: Adult Immunizations up to date, Client reports receiving the 2nd dose of the Covid vaccine, Last tetanus immunization:. - Social history:: Smoking status: Patient reports the use of cigarette tobacco products, smokes one-half pack cigarettes per day, Patient/guardian denies using alcohol. - Family history:: not pertinent. Screenin/08 02:08 Abuse screen: Denies threats or abuse. Denies injuries from another. Nutritional kd3 screening: No deficits noted. Tuberculosis screening: No symptoms or risk factors identified. Fall Risk IV access (20 points). Assessment: 02:09 GI: Bowel sounds present X 4 quads. Abd is soft and non tender. kd3 02:39 General: Appears in no apparent distress. Behavior is calm, cooperative. Neuro: Level kd3 of Consciousness is awake, alert, obeys commands, Oriented to person, place, time, situation. Respiratory: Airway is patent Trachea midline Respiratory effort is even, unlabored, Respiratory pattern is regular, symmetrical. Vital Signs: 05/11 23:19 BP 121 / 99; Pulse 94; Resp 18; Temp 99.5(TE); Pulse Ox 100% on R/A; Weight 92.08 kg; ld1 Height 5 ft. 9 in. (175.26 cm); Pain 8/10; 0708 02:09 BP 138 / 51; Pulse 74; Resp 18; Pulse Ox 98% ; kd3 02:09 Temp 100.2(O); kd3 02:40 BP 125 / 48; Pulse 76; Resp 18; Pulse Ox 98% ; kd3 02:46 Temp 99.9(O); kd3 03:59 BP 125 / 61 Supine; kd3 03:59 BP 120 / 65 Sitting; kd3 03:59 BP 123 / 57 Standing; kd3 03:59 Temp 98.4(O); kd3 05/11 23:19 Body Mass Index 29.98 (92.08 kg, 175.26 cm) ld1 ED Course: 05/11 23:10 Patient arrived in ED. mr 23:20 Triage completed. ld1 23:20 Arm band placed on right wrist. ld1 23:24 Flu Sent. ld1 23:24 COVID-19 SARS RT PCR (Document "Date of Onset" if Symptomatic) Sent. ld1 07 00:32 Valente Cardenas MD is Attending Physician. viv 01:34 Adeola Herrera, MAR is Primary Nurse. kd3 02:08 Patient has correct armband on for positive identification. kd3 02:08 No provider procedures requiring assistance completed. Inserted saline lock: 20 gauge kd3 in right antecubital area, using aseptic technique. Blood collected. 03:03 CT Abd/Pelvis - IV Contrast Only In Process Unspecified. EDMS 03:41 Salima Mark MD is Referral Physician. viv 04:10 IV discontinued, intact, bleeding controlled, No redness/swelling at site. Pressure kd3 dressing applied. Administered Medications: 02:08 Drug: NS 0.9% 1000 ml Route: IV; Rate: 1 bolus; Site: right antecubital; kd3 04:01 Follow up: Response: No adverse reaction; IV Status: Completed infusion kd3 02:08 Drug: Zofran (Ondansetron) 4 mg Route: IVP; Site: right antecubital; kd3 04:01 Follow up: Response: No adverse reaction kd3 02:19 Drug: Tylenol 1000 mg Route: PO; kd3 02:46 Follow up: Response: Temperature is decreased kd3 02:19 Drug: Flagyl (metroNIDAZOLE) 500 mg Volume: 100 ml; Route: IVPB; Rate: 200 ml/hr; kd3 Infused Over: 30 mins; Site: right antecubital; 02:45 Follow up: Response: No adverse reaction; IV Status: Completed infusion kd3 02:45 Drug: Cipro (ciprofloxacin) 400 mg Volume: 200 ml; Route: IVPB; Infused Over: 60 mins; kd3 Site: right antecubital; 03:59 Follow up: Response: No adverse reaction; IV Status: Completed infusion kd3 03:58 CANCELLED (Physician Discretion): NS 0.9% 1000 ml IV at 1 bolus Per protocol; 1000 mL kd3 bolus 03:59 Drug: Rocephin (cefTRIAXone) 1 grams Route: IV; Rate: per protocol; Site: right kd3 antecubital; 03:59 Follow up: Response: No adverse reaction; IV Status: Completed infusion kd3 Medication: 02:09 VIS not applicable for this client. kd3 Outcome: 03:41 Discharge ordered by . viv 04:00 Discharged to home ambulatory. kd3 04:00 Condition: stable 04:00 Condition: stable 04:00 Discharge instructions given to patient, Instructed on discharge instructions, follow up and referral plans. Demonstrated understanding of instructions, follow-up care, medications. 04:00 Prescriptions given X 5 kd3 04:11 Patient left the ED. kd3 Signatures: Dispatcher [employer] EDValente Gannon MD MD cha Rivera, Mary mr Melissa Roberson RN RN ld1 Adeola Herrera RN RN kd3
--- NOTE | 2022-05-12 03:41 | EDPHYS ---
Physician Documentation [facility] Name: Javier Castillo Age: 26 yrs Sex: Male : 1995 Arrival Date: 05/11/2022 Time: 23:10 Bed 6 Private MD: HYACINTH Physician Valente Cardenas HPI: 05/12 02:26 This 26 yrs old Male presents to ER via Ambulatory with complaints of viv Abdominal Cramping, Diarrhea, Nausea. 02:26 The patient presents with abdominal pain in the upper abdomen, in the lower abdomen, viv abdominal distention in the upper abdomen, in the lower abdomen. Onset: The symptoms/episode began/occurred 1 day(s) ago. The patient presents to the emergency department with nausea, diarrhea, abdominal pain, of the right upper quadrant, left upper quadrant, right lower quadrant and left lower quadrant. Onset: The symptoms/episode began/occurred 1 day(s) ago. Possible causes:. The symptoms are aggravated by nothing. The symptoms are alleviated by nothing. The symptoms do not radiate. Associated signs and symptoms: Pertinent positives: abdominal pain, diarrhea, nausea. The symptoms are described as crampy, intermittent. Historical: - Allergies: 05/11 23:20 Sulfa (Sulfonamide Antibiotics); ld1 - PMHx: 23:20 Asthma; ld1 - PSHx: 23:20 None; ld1 - Immunization history:: Adult Immunizations up to date, Client reports receiving the 2nd dose of the Covid vaccine, Last tetanus immunization:. - Social history:: Smoking status: Patient reports the use of cigarette tobacco products, smokes one-half pack cigarettes per day, Patient/guardian denies using alcohol. - Family history:: not pertinent. ROS: 05/12 02:26 Eyes: Negative for injury, pain, redness, and discharge, ENT: Negative for injury, viv pain, and discharge, Neck: Negative for injury, pain, and swelling, Cardiovascular: Negative for chest pain, palpitations, and edema, Respiratory: Negative for shortness of breath, cough, wheezing, and pleuritic chest pain, Back: Negative for injury and pain, : Negative for injury, bleeding, discharge, and swelling, MS/Extremity: Negative for injury and deformity, Skin: Negative for injury, rash, and discoloration, Neuro: Negative for headache, weakness, numbness, tingling, and seizure, Psych: Negative for depression, anxiety, suicide ideation, homicidal ideation, and hallucinations, Allergy/Immunology: Negative for hives, rash, and allergies, Endocrine: Negative for neck swelling, polydipsia, polyuria, polyphagia, and marked weight changes, Hematologic/Lymphatic: Negative for swollen nodes, abnormal bleeding, and unusual bruising. Constitutional: Positive for chills, fever, malaise. Abdomen/GI: Positive for nausea, diarrhea, abdominal cramps, of the right upper quadrant, left upper quadrant, right lower quadrant and left lower quadrant. Exam: 02:26 Head/Face: Normocephalic, atraumatic. Eyes: Pupils equal round and reactive to light, viv extra-ocular motions intact. Lids and lashes normal. Conjunctiva and sclera are non-icteric and not injected. Cornea within normal limits. Periorbital areas with no swelling, redness, or edema. ENT: Nares patent. No nasal discharge, no septal abnormalities noted. Tympanic membranes are normal and external auditory canals are clear. Oropharynx with no redness, swelling, or masses, exudates, or evidence of obstruction, uvula midline. Mucous membranes moist. Neck: Trachea midline, no thyromegaly or masses palpated, and no cervical lymphadenopathy. Supple, full range of motion without nuchal rigidity, or vertebral point tenderness. No Meningismus. Chest/axilla: Normal chest wall appearance and motion. Nontender with no deformity. No lesions are appreciated. Cardiovascular: Regular rate and rhythm with a normal S1 and S2. No gallops, murmurs, or rubs. Normal PMI, no JVD. No pulse deficits. Respiratory: Lungs have equal breath sounds bilaterally, clear to auscultation and percussion. No rales, rhonchi or wheezes noted. No increased work of breathing, no retractions or nasal flaring. Back: No spinal tenderness. No costovertebral tenderness. Full range of motion. Male : Normal genitalia with no discharge or lesions. Skin: Warm, dry with normal turgor. Normal color with no rashes, no lesions, and no evidence of cellulitis. MS/ Extremity: Pulses equal, no cyanosis. Neurovascular intact. Full, normal range of motion. Neuro: Awake and alert, GCS 15, oriented to person, place, time, and situation. Cranial nerves II-XII grossly intact. Motor strength 5/5 in all extremities. Sensory grossly intact. Cerebellar exam normal. Normal gait. Psych: Awake, alert, with orientation to person, place and time. Behavior, mood, and affect are within normal limits. 02:26 Abdomen/GI: Inspection: abdomen appears normal, Bowel sounds: normal, Palpation: mild abdominal tenderness, moderate abdominal tenderness, in the right upper quadrant, left upper quadrant, right lower quadrant and left lower quadrant, Liver: no appreciated palpable abnormalities, Hernia: not appreciated. 02:26 Abdomen/GI: Bowel sounds: Palpation: voluntary guarding, is elicited in all quadrants. Vital Signs: 05/11 23:19 BP 121 / 99; Pulse 94; Resp 18; Temp 99.5(TE); Pulse Ox 100% on R/A; Weight 92.08 kg; ld1 Height 5 ft. 9 in. (175.26 cm); Pain 8/10; 07 02:09 BP 138 / 51; Pulse 74; Resp 18; Pulse Ox 98% ; kd3 02:09 Temp 100.2(O); kd3 02:40 BP 125 / 48; Pulse 76; Resp 18; Pulse Ox 98% ; kd3 02:46 Temp 99.9(O); kd3 03:59 BP 125 / 61 Supine; kd3 03:59 BP 120 / 65 Sitting; kd3 03:59 BP 123 / 57 Standing; kd3 03:59 Temp 98.4(O); kd3 05/11 23:19 Body Mass Index 29.98 (92.08 kg, 175.26 cm) ld1 MDM: 00:32 Patient medically screened. [facility] 02:32 Differential diagnosis: diverticulitis, viral gastroenteritis, gastroenteritis, viv Cholelithiasis, diverticulitis, gastritis, non-specific abd pain, pancreatitis, Peptic Ulcer Disease. Data reviewed: vital signs, nurses notes, lab test result(s), radiologic studies, CT scan. Data interpreted: secured entrance monitor: not applicable for this patient encounter. rate is 74 beats/min, Pulse oximetry: on room air is 98 %. Counseling: I had a detailed discussion with the patient and/or guardian regarding: the historical points, exam findings, and any diagnostic results supporting the discharge/admit diagnosis, lab results, radiology results, the need for outpatient follow up, for definitive care, a family practitioner, a meat curer. 05/11 23:21 Order name: COVID-19 SARS RT PCR (Document "Date of Onset" if Symptomatic); Complete ld1 Time: 02:12 05/11 23:21 Order name: Flu; Complete Time: 02:12 ld1 05/12 00:33 Order name: CBC with Diff; Complete Time: 02:12 viv 05/12 00:33 Order name: CMP; Complete Time: 02:26 viv 05/12 00:33 Order name: Lipase; Complete Time: 02:26 viv 05/12 02:04 Order name: Urine Dipstick-Ancillary; Complete Time: 02:12 EDMS 05/12 02:13 Order name: CT Abd/Pelvis - IV Contrast Only [facility] 05/12 00:33 Order name: IV Saline Lock; Complete Time: 01:50 viv 05/12 00:33 Order name: Labs collected and sent; Complete Time: 01:50 viv 05/12 00:33 Order name: Urine Dipstick-Ancillary (obtain specimen); Complete Time: 02:08 [facility] Administered Medications: 02:08 Drug: NS 0.9% 1000 ml Route: IV; Rate: 1 bolus; Site: right antecubital; kd3 04:01 Follow up: Response: No adverse reaction; IV Status: Completed infusion kd3 02:08 Drug: Zofran (Ondansetron) 4 mg Route: IVP; Site: right antecubital; kd3 04:01 Follow up: Response: No adverse reaction kd3 02:19 Drug: Tylenol 1000 mg Route: PO; kd3 02:46 Follow up: Response: Temperature is decreased kd3 02:19 Drug: Flagyl (metroNIDAZOLE) 500 mg Volume: 100 ml; Route: IVPB; Rate: 200 ml/hr; kd3 Infused Over: 30 mins; Site: right antecubital; 02:45 Follow up: Response: No adverse reaction; IV Status: Completed infusion kd3 02:45 Drug: Cipro (ciprofloxacin) 400 mg Volume: 200 ml; Route: IVPB; Infused Over: 60 mins; kd3 Site: right antecubital; 03:59 Follow up: Response: No adverse reaction; IV Status: Completed infusion kd3 03:58 CANCELLED (Physician Discretion): NS 0.9% 1000 ml IV at 1 bolus Per protocol; 1000 mL kd3 bolus 03:59 Drug: Rocephin (cefTRIAXone) 1 grams Route: IV; Rate: per protocol; Site: right kd3 antecubital; 03:59 Follow up: Response: No adverse reaction; IV Status: Completed infusion kd3 Disposition Summary: 05/12/22 03:41 Discharge Ordered Location: Home viv Problem: new viv Symptoms: have improved viv Condition: Stable viv Diagnosis - Abdominal tenderness viv - Fever, unspecified viv - Diarrhea, unspecified viv - Other specified noninfective gastroenteritis and colitis - PANCOLITIS viv Followup: viv - With: Private Physician - When: 2 - 3 days - Reason: Recheck today's complaints, Continuance of care, Re-evaluation by your physician Followup: viv - With: - When: 2 - 3 days - Reason: Recheck today's complaints, Continuance of care, Re-evaluation by your physician Discharge Instructions: - Discharge Summary Sheet viv - Abdominal Pain, Adult viv - Food Choices to Help Relieve Diarrhea, Adult viv - Diarrhea, Adult viv - Fever, Adult viv - Abdominal Pain, Adult, Guor-xi-Gigg viv - Diarrhea, Adult, Ywnn-nt-Tuhs viv - Fever, Adult, [id number]-[id number] viv - Colitis [facility] Forms: - Medication Reconciliation Form [facility] - Thank You Letter [facility] - Antibiotic Education viv - Prescription Opioid Use [facility] - Work release form kd3 Prescriptions: - Flagyl 500 mg Oral Tablet - take 1 tablet by ORAL route every 8 hours for 10 days; 30 tablet; Refills: 0, [facility] Product Selection Permitted - Pepcid 20 mg Oral Tablet - take 1 tablet by ORAL route every 12 hours for 10 days; 20 tablet; Refills: 0, [facility] Product Selection Permitted - Zofran 4 mg Oral Tablet - take 1 tablet by ORAL route every 12 hours As needed; 20 tablet; Refills: 0, [facility] Product Selection Permitted - Cipro 500 mg Oral Tablet - take 1 tablet by ORAL route every 12 hours for 7 days; 14 tablet; Refills: 0, [facility] Product Selection Permitted - dicyclomine 20 mg Oral Tablet - take 1 tablet by ORAL route 4 times per day; 28 tablet; Refills: 0, Product [facility] Selection Permitted Signatures: Dispatcher [employer] Valente Guzman MD MD cha Dibbern, Lauren RN RN ld1 Adeola Herrera RN RN kd3 Corrections: (The following items were deleted from the chart) 03:58 03:41 NS 0.9% 1000 ml IV at 1 bolus Per protocol; 1000 mL bolus ordered. viv kd3
[2022-05-12] MEDS ORDERED: CEFTRIAXONE 1000 MG/VIAL ONE (03:58)
[2022-05-12] MEDS ORDERED: NA CHLORIDE 0.9% 1,000 ML ONE (03:58)
[2022-05-12 04:31] VITALS: O2SAT 98
[2022-05-12 04:38] VITALS: BP 123/57; TEMP 98.4
--- NOTE | 2022-05-12 14:52 | RAD REPORT ---
EXAM DESCRIPTION: CT Abdomen and Pelvis COMPARISON: CT abdomen pelvis May 01, 2019 CLINICAL HISTORY: [facility] Abdominal pain, acute, nonlocalized TECHNIQUE: CT of the abdomen and pelvis was acquired with IV contrast material. Coronal and sagitt al reconstructions were obtained. Automated exposure control was utilized on this examination as a dose lowering technique. FINDINGS: Lung bases: Clear. Liver: Normal. Gallbladder and biliary: Normal gallbladder. Unremarkable biliary tree. Pancreas: Normal. Spleen: Normal. Adrenal glands: Normal adrenal glands. Kidneys: Normal kidneys Stomach and Small Bowel: The stomach and small bowel are normal. Urinary bladder: Normal. Prostate/Male Urogenital: Normal. Colon and Appendix: Diffuse colonic wall thickening is present. No evidence of appendicitis. Retroperitoneum and lymph nodes: Normal. Vascular: Unremarkable. Peritoneal cavity: No ascites or free air. Musculoskeletal and soft tissues: Soft tissues are unremarkable. No aggressive bone lesions. No com pression fracture. IMPRESSION: ABDOMEN/PELVIS IMPRESSION: Mild infectious or inflammatory pancolitis. Electronically signed by: Tobin Dukes MD 05/12/2022 3:34 AM CDT Due to temporary technical issues with the PACS/Fluency reporting system, reports are being signed by the in house radiologists without review as a courtesy to insure prompt reporting. The interpreting radiologist is fully responsible for the content of the report.
== END 2022-05-12 04:11 | disposition home or self-care (01) ==
LOC: ER 23:08
DX: K51.00 Ulcerative (chronic) pancolitis without complications (principal); R50.9 Fever, unspecified; R19.7 Diarrhea, unspecified; F17.210 Nicotine dependence, cigarettes, uncomplicated; Z20.822 Contact with and (suspected) exposure to COVID-19; Z88.2 Allergy status to sulfonamides
CPT/HCPCS: 36415; 74177; 80053; 81003; 83690; 85025; 87804; J0744; J2405; J3490; J7030; Q9967; U0003

== ENCOUNTER 2023-04-11 12:04 | Emergency (ER) | payer SELFPAY ==
[2023-04-11 12:45] LABS: Absolute Lymphocytes (CBC) 1.7 K/uL (0.7-4.9); Hematocrit 47.1 % (39.6-49.0); Lymphocytes % 47.5 % (15.3-44.8); MPV 7.7 fL (7.6-11.3); RBC Red Blood Cell Count 5.29 M/uL (4.33-5.43)
[2023-04-11 12:54] LABS: Protime INR 1.07
[2023-04-11 12:58] LABS: Potassium 3.9 mEq/L (3.5-5.1)
--- NOTE | 2023-04-11 13:39 | RAD REPORT ---
EXAM DESCRIPTION: CT - Abdomen Pelvis W Contrast - 04/11/2023 1:01 pm CLINICAL HISTORY: possible rectal abscess COMPARISON: Abdomen Pelvis W Contrast dated 02/13/2023; Abdomen Pelvis W Contrast dated 05/12/2022; Abdomen Pelvis W Contrast dated 05/01/2019; CT ABD PELVIS W CONTRAST dated 11/06/2014 TECHNIQUE: Thin cut axial CT imaging of the abdomen and pelvis was performed following intravenous a dministration of 100 mL Isovue 300. Multiplanar reformats were generated and reviewed. All CT scans are performed using dose optimization technique as appropriate and may include automated exposure control or mA/KV adjustment according to patient size. FINDINGS: No suspicious findings in the lung bases. The liver, spleen, and pancreas show no suspicious findings. Gallbladder and biliary tree are also wi thout suspicious finding. Symmetric renal function is seen with no hydronephrosis or suspicious renal mass. No dilated bowel loops or bowel wall thickening. No free air, free fluid or inflammatory stranding. N o hernia, mass or bulky lymphadenopathy. The urinary bladder is without significant finding. Mild sof t tissue fullness along the anal canal, with mild asymmetric obliteration of the fat planes along the left aspect of the perineum, without discrete fluid collections. No suspicious bony findings. IMPRESSION: No acute intra-abdominal process. Mild soft tissue fullness along the anal canal with asymmetric obliteration of the fat planes on the left aspect of the perineum, which is nonspecific, but could relate to an ongoing inflammatory proces s. No evidence of discrete fluid collections.
--- NOTE | 2023-04-11 13:53 | EDPHYS ---
Physician Documentation [facility] Name: Javier Castillo Age: 27 yrs Sex: Male : 1995 Arrival Date: 04/11/2023 Time: 12:04 Bed 9 Private MD: ED Physician Isma Emerson HPI: 04/11 13:23 This 27 yrs old Male presents to ER via Ambulatory with complaints of Rectal rn Abscess. 13:23 The patient presents to the emergency department with pain in the rectal area. Onset: rn The symptoms/episode began/occurred 2 day(s) ago. Context: the patient has no known special context relating to the rectal area complaint(s). Modifying factors: The symptoms are alleviated by nothing, The symptoms are aggravated by bowel movement, sitting position. The patient has experienced a previous episode. Pt reports had this a couple of months ago, did not get surgery, abx improved symptoms at that time, no fever, pain returning, reports some drainage. . Historical: - Allergies: 12:17 Sulfa (Sulfonamide Antibiotics); iw - Home Meds: 12:17 None [Active]; iw - PMHx: 12:17 Asthma; iw - PSHx: 12:17 None; iw - Immunization history:: Adult Immunizations unknown, Last tetanus immunization: unknown. - Social history:: Smoking status: Reported history of juuling and/or vaping. - Family history:: not pertinent. - Hospitalizations: : No recent hospitalization is reported. ROS: 13:23 Constitutional: Negative for fever, chills, and weight loss, Cardiovascular: Negative rn for chest pain, palpitations, and edema, Respiratory: Negative for shortness of breath, cough, wheezing, and pleuritic chest pain, Abdomen/GI: + rectal pain Back: Negative for injury and pain, MS/Extremity: Negative for injury and deformity, Skin: Negative for injury, rash, and discoloration, Neuro: Negative for headache, weakness, numbness, tingling, and seizure. Exam: 13:23 Constitutional: This is a well developed, well nourished patient who is awake, alert, rn and in no acute distress. Cardiovascular: Regular rate and rhythm. No pulse deficits. Abdomen/GI: soft, non-tender Vital Signs: 12:16 BP 142 / 82; Pulse 64; Resp 16; Pulse Ox 99% on R/A; Weight 104.33 kg; Height 5 ft. 10 iw in. ; Pain 8/10; 13:35 BP 135 / 69; Pulse 70; Resp 18 S; Pulse Ox 98% on R/A; kc6 12:16 Body Mass Index 33.00 (104.33 kg, 177.8 cm) iw 12:16 Pain Scale: Adult iw MDM: 12:16 Patient medically screened. rn 13:50 Differential diagnosis: hemorrhoids, fissure, abscess, proctitis. Data reviewed: vital rn signs, nurses notes, lab test result(s), radiologic studies, CT scan, and as a result, I will discharge patient. Counseling: I had a detailed discussion with the patient and/or guardian regarding: the historical points, exam findings, and any diagnostic results supporting the discharge/admit diagnosis, lab results, radiology results, the need for outpatient follow up, to return to the emergency department if symptoms worsen or persist or if there are any questions or concerns that arise at home. Special discussion: I discussed with the patient/guardian in detail that at this point there is no indication for admission to the hospital. It is understood, however, that if the symptoms persist or worsen the patient needs to return immediately for re-evaluation. ED course: NO fluid collections on ct, no elevation of WBC, afebrile, will dc home with abx and return precautions. . 04/11 12:20 Order name: CBC with Diff; Complete Time: 13:12 rn 04/11 12:20 Order name: Basic Metabolic Panel; Complete Time: 13:12 rn 04/11 12:20 Order name: Protime (+inr); Complete Time: 13:12 rn 04/11 12:20 Order name: Ptt, Activated; Complete Time: 13:12 rn 04/11 12:20 Order name: CT Abd/Pelvis - IV Contrast Only; Complete Time: 13:42 rn 04/11 12:20 Order name: IV Start; Complete Time: 12:31 rn Administered Medications: No medications were administered Disposition Summary: 04/11/23 13:52 Discharge Ordered Location: Home rn Problem: new rn Symptoms: have improved rn Condition: Stable rn Diagnosis - Proctitis rn Followup: rn - With: Anselmo Pineda MD - When: 5 - 6 days - Reason: Recheck today's complaints, Re-evaluation by your physician Discharge Instructions: - Discharge Summary Sheet rn - Proctitis rn Forms: - Medication Reconciliation Form rn - Thank You Letter rn - Antibiotic r d intern - Prescription Opioid Use rn Prescriptions: - Anusol-HC 2.5 % Topical cream with perineal applicator - apply 1 application by RECTAL route every 6 to 8 hours as needed for pain; 1 rn Pack; Refills: 0, Product Selection Permitted - Clindamycin HCl 300 mg Oral Capsule - take 1 capsule by ORAL route every 6 hours for 10 days; 40 capsule; Refills: 0, rn Product Selection Permitted - Tramadol 50 mg Oral Tablet - take 1 tablet by ORAL route every 8 hours as needed; 12 tablet; Refills: 0, rn Product Selection Permitted Signatures: Dispatcher [employer] Herlinda Zapata RN RN iw Isma Emerson MD MD rn
--- NOTE | 2023-04-11 13:53 | ER ---
Nurse's Notes [facility] Name: Javier Castillo Age: 27 yrs Sex: Male : 1995 Arrival Date: 04/11/2023 Time: 12:04 Bed 9 Private MD: Diagnosis: Proctitis Presentation: 04/11 12:16 Chief complaint: Patient states: hx of pilonidal cyst, was admitted in February bu they iw only did antibiotics , it stated getting bad a again and draining X 2 weeks ago. Coronavirus screen: At this time, the client does not indicate any symptoms associated with coronavirus-19. Ebola Screen: Patient negative for fever greater than or equal to 101.5 degrees Fahrenheit, and additional compatible Ebola Virus Disease symptoms Patient denies exposure to infectious person. Patient denies travel to an Ebola-affected area in the 21 days before illness onset. No symptoms or risks identified at this time. Initial Sepsis Screen: Does the patient meet any 2 criteria? No. Patient's initial sepsis screen is negative. Does the patient have a suspected source of infection? No. Patient's initial sepsis screen is negative. Risk Assessment: Do you want to hurt yourself or someone else? Patient reports no desire to harm self or others. Onset of symptoms was March 2023. 12:16 Method Of Arrival: Ambulatory iw 12:16 Acuity: MOIRA 3 iw Historical: - Allergies: 12:17 Sulfa (Sulfonamide Antibiotics); iw - Home Meds: 12:17 None [Active]; iw - PMHx: 12:17 Asthma; iw - PSHx: 12:17 None; iw - Immunization history:: Adult Immunizations unknown, Last tetanus immunization: unknown. - Social history:: Smoking status: Reported history of juuling and/or vaping. - Family history:: not pertinent. - Hospitalizations: : No recent hospitalization is reported. Screenin:[facility] ED Fall Risk Assessment (Adult) History of falling in the last 3 months, kc6 including since admission No falls in past 3 months (0 pts) Confusion or Disorientation No (0 pts) Intoxicated or Sedated No (0 pts) Impaired Gait No (0 pts) Mobility Assist Device Used No (0 pt) Altered Elimination No (0 pt) Score/Fall Risk Level 0 - 2 = Low Risk Oriented to surroundings, Maintained a safe environment, Educated pt \T\ family on fall prevention, incl call for assistance when getting out of bed, Assessed \T\ reinforced patient's understanding of fall precautions, Hourly rounding (assess needs \T\ fall precautionary measures) done. Abuse screen: Denies threats or abuse. Denies injuries from another. Nutritional screening: No deficits noted. Tuberculosis screening: No symptoms or risk factors identified. Assessment: 12:32 General: Appears in no apparent distress. uncomfortable, Behavior is calm, cooperative, kc6 appropriate for age. Pain: Complains of pain in rectal area. Neuro: Balbuena Agitation-Sedation Scale (RASS): 0 - Alert and Calm Level of Consciousness is awake, alert, obeys commands, Oriented to person, place, time, situation, Appropriate for age. Cardiovascular: Capillary refill < 3 seconds. Respiratory: Airway is patent Trachea midline Respiratory effort is even, unlabored, Respiratory pattern is regular, symmetrical. GI: Reports rectal bleeding. : No signs and/or symptoms were reported regarding the genitourinary system. EENT: No signs and/or symptoms were reported regarding the EENT system. Derm: No signs and/or symptoms reported regarding the dermatologic system. Skin is intact, Skin is pink, warm \T\ dry. Musculoskeletal: No signs and/or symptoms reported regarding the musculoskeletal system. Circulation, motion, and sensation intact. Capillary refill < 3 seconds, Range of motion: intact in all extremities. 13:34 Reassessment: Patient appears in no apparent distress at this time. No changes from kc6 previously documented assessment. Patient and/or family updated on plan of care and expected duration. Pain level reassessed. Patient is alert, oriented x 3, equal unlabored respirations, skin warm/dry/pink. Vital Signs: 12:16 BP 142 / 82; Pulse 64; Resp 16; Pulse Ox 99% on R/A; Weight 104.33 kg; Height 5 ft. 10 iw in. ; Pain 8/10; 13:35 BP 135 / 69; Pulse 70; Resp 18 S; Pulse Ox 98% on R/A; kc6 12:16 Body Mass Index 33.00 (104.33 kg, 177.8 cm) iw 12:16 Pain Scale: Adult iw ED Course: 12:06 Patient arrived in ED. ts1 12:16 Isma Emerson MD is Attending Physician. rn 12:17 Triage completed. iw 12:17 Arm band placed on. iw 12:22 Goldie Laureano, RN is Primary Nurse. kc6 12:31 Inserted saline lock: 20 gauge in right antecubital area, using aseptic technique. kc6 Blood collected. 12:33 Patient has correct armband on for positive identification. Bed in low position. Call kc6 light in reach. Side rails up X 1. 13:03 CT Abd/Pelvis - IV Contrast Only In Process Unspecified. EDMS 13:52 Anselmo Pineda MD is Referral Physician. rn 14:05 No provider procedures requiring assistance completed. IV discontinued, intact, kc6 bleeding controlled, No redness/swelling at site. Pressure dressing applied. Administered Medications: No medications were administered Medication: 14:05 VIS not applicable for this client. kc6 Outcome: 13:52 Discharge ordered by . rn 14:05 Discharged to home ambulatory. kc6 14:05 Condition: stable 14:05 Discharge instructions given to patient, Instructed on discharge instructions, follow up and referral plans. medication usage, Demonstrated understanding of instructions, follow-up care, medications, Prescriptions given X 3. 14:05 Patient left the ED. kc6 Signatures: Dispatcher [employer] EDMS Herlinda Beltran RN RN iw Isma Emerson MD MD rn Campbell, Kaitlyn, RN RN kc6 Mae Martinez PAS PAS ts1
[2023-04-11 14:27] VITALS: BP 135/69; O2SAT 98
== END 2023-04-11 14:05 | disposition home or self-care (01) ==
LOC: ER 12:04
DX: K62.89 Other specified diseases of anus and rectum (principal); L05.91 Pilonidal cyst without abscess; K61.1 Rectal abscess; Z88.2 Allergy status to sulfonamides
CPT/HCPCS: 36415; 74177; 80048; 85025; 85610; 85730; 99284; Q9967

== ENCOUNTER 2024-06-05 09:37 | Inpatient (IN) | payer SELFPAY ==
--- NOTE | 2024-06-05 10:30 | ER ---
Nurse's Notes [facility] Name: Javier Castillo Age: 28 yrs Sex: Male : 1995 Arrival Date: 06/05/2024 Time: 09:37 Bed 7 Private MD: Diagnosis: Pilonidal cyst with abscess Presentation: 06/05 09:44 Chief complaint: Patient states: abscess to tailbone, noticed it yesterday. Coronavirus iw screen: At this time, the client does not indicate any symptoms associated with coronavirus-19. Ebola Screen: No symptoms or risks identified at this time. Initial Sepsis Screen: Does the patient meet any 2 criteria? No. Patient's initial sepsis screen is negative. Does the patient have a suspected source of infection? No. Patient's initial sepsis screen is negative. Risk Assessment: Do you want to hurt yourself or someone else? Patient reports no desire to harm self or others. Onset of symptoms was June 04, 2024. 09:44 Method Of Arrival: Ambulatory iw 09:44 Acuity: MOIRA 3 iw Historical: - Allergies: 09:45 Sulfa (Sulfonamide Antibiotics); iw - Home Meds: 09:45 None [Active]; iw - PMHx: 09:45 Asthma; iw - PSHx: 09:45 None; iw - Immunization history:: Adult Immunizations up to date. - Infectious Disease History:: Denies. - Social history:: Smoking status: Reported history of juuling and/or vaping. - Family history:: not pertinent. - Hospitalizations: : No recent hospitalization is reported. Screenin:47 [facility] ED Fall Risk Assessment (Adult) History of falling in the last 3 months, hb including since admission No falls in past 3 months (0 pts) Confusion or Disorientation No (0 pts) Intoxicated or Sedated No (0 pts) Impaired Gait No (0 pts) Mobility Assist Device Used No (0 pt) Altered Elimination No (0 pt) Score/Fall Risk Level 0 - 2 = Low Risk Oriented to surroundings, Maintained a safe environment, Educated pt \T\ family on fall prevention, incl call for assistance when getting out of bed. Abuse screen: Denies threats or abuse. Denies injuries from another. Nutritional screening: No deficits noted. Tuberculosis screening: No symptoms or risk factors identified. Assessment: 11:48 General: Appears in no apparent distress. Behavior is calm, cooperative. Pain: Pain hb currently is 10 out of 10 on a pain scale. Neuro: Level of Consciousness is awake, alert, obeys commands, Oriented to person, place, time, situation. Cardiovascular: Patient's skin is warm and dry. Respiratory: Respiratory effort is even, unlabored, Respiratory pattern is regular, symmetrical. Derm: Abscess located on buttocks is golf ball sized, has no drainage, is hot to touch, is red, is raised. Musculoskeletal: Reports pain in buttocks. 12:45 Reassessment: Patient appears in no apparent distress at this time. Patient and/or hb family updated on plan of care and expected duration. Pain level reassessed. Patient is alert, oriented x 3, equal unlabored respirations, skin warm/dry/pink. Vital Signs: 09:44 BP 138 / 71; Pulse 84; Resp 16; Temp 97.5; Pulse Ox 97% ; Weight 106.59 kg; Height 5 iw ft. 9 in. ; Pain 10/10; 09:44 Body Mass Index 34.70 (106.59 kg, 175.26 cm) iw 09:44 Pain Scale: Adult iw ED Course: 09:41 Patient arrived in ED. mr 09:42 Isma Emerson MD is Attending Physician. rn 09:45 Triage completed. iw 09:46 Arm band placed on. iw 10:29 Hiro Martinez MD is Hospitalizing Provider. rn 10:53 Extremity Nonvascular Limited In Process Unspecified. EDMS 11:40 Inserted saline lock: 20 gauge in right antecubital area, using aseptic technique. hb Blood collected. Flushed with 10 mL NS. 11:47 Patient has correct armband on for positive identification. Call light in reach. Side hb rails up X 1. Provided Education on: tests, medications, result times. 12:45 No provider procedures requiring assistance completed. Patient admitted, IV remains in hb place. Administered Medications: 12:02 Drug: Clindamycin IVPB 600 mg IVPB once over 30 mins; (mix in 50 mL) Route: IVPB; ld1 Infused Over: 30 mins; Site: right antecubital; 12:03 Drug: morphine IVP or IV 4 mg IVP once over 4 mins Route: IVP; Infused Over: 4 mins; ld1 Site: right antecubital; Medication: 11:47 VIS not applicable for this client. hb Outcome: 10:29 Decision to Hospitalize by Provider. rn 12:45 Admitted to Med/surg accompanied by tech, family with patient, via wheelchair, with hb chart, 12:45 Condition: stable 12:45 Instructed on the need for admit, Demonstrated understanding of instructions, 13:05 Patient left the ED. hb Signatures: Dispatcher [employer] EDAZ TerryValentina, Reg Reg mr Herlinda Beltran RN RN Isma Emerson MD MD rn Baxter, Heather, RN RN Kayleigh, MAR Torres RN ld1 Corrections: (The following items were deleted from the chart) 16:13 11:40 Inserted saline lock: 20 gauge in right forearm, using aseptic technique. Blood hb collected. Flushed with 10 mL NS hb
--- NOTE | 2024-06-05 10:30 | EDPHYS ---
Physician Documentation [facility] Name: Javier Castillo Age: 28 yrs Sex: Male : 1995 Arrival Date: 06/05/2024 Time: 09:37 Bed 7 Private MD: ED Physician Isma Emerson HPI: 06/05 10:26 The patient presents with an abscess of the buttocks. Description: fluctuant, swollen. rn Onset: The symptoms/episode began/occurred yesterday. Possible cause(s): unknown. Modifying factors: the symptoms are alleviated by nothing, the symptoms are aggravated by touching. Severity of symptoms: At their worst the symptoms were moderate, in the emergency department the symptoms are unchanged. The patient has experienced similar episodes in the past. Patient reports swollen painful area to the top of gluteal cleft that began yesterday. No fevers or chills. No drainage. Has had this twice before.. Historical: - Allergies: 09:45 Sulfa (Sulfonamide Antibiotics); iw - Home Meds: :45 None [Active]; iw - PMHx: 09:45 Asthma; iw - PSHx: 09:45 None; iw - Immunization history:: Adult Immunizations up to date. - Infectious Disease History:: Denies. - Social history:: Smoking status: Reported history of juuling and/or vaping. - Family history:: not pertinent. - Hospitalizations: : No recent hospitalization is reported. ROS: 10:26 Constitutional: Negative for fever, chills, and weight loss, Abdomen/GI: Negative for rn abdominal pain, nausea, vomiting, diarrhea, and constipation, Back: Positive for pain and swelling above gluteal cleft to the lower back Skin: Positive for swelling and tenderness along the left gluteal cleft Exam: 10:26 Constitutional: This is a well developed, well nourished patient who is awake, alert, rn and in no acute distress. Cardiovascular: Regular rate and rhythm. No pulse deficits. Skin: Warm, dry with normal turgor. Positive area approximately 3 cm of fluctuance and tenderness just left of superior gluteal cleft Vital Signs: 09:44 BP 138 / 71; Pulse 84; Resp 16; Temp 97.5; Pulse Ox 97% ; Weight 106.59 kg; Height 5 iw ft. 9 in. ; Pain 10/10; 09:44 Body Mass Index 34.70 (106.59 kg, 175.26 cm) iw 09:44 Pain Scale: Adult iw MDM: 09:42 Patient medically screened. rn 10:26 Differential diagnosis: abscess, cellulitis. Data reviewed: vital signs, nurses notes, rn radiologic studies, ultrasound, and as a result, I will admit patient. Consideration of Admission/Observation Patient was admitted/placed on observation. Escalation of care including admission/observation considered. Management of patient was discussed with the following: Dentistry Professor: Discussed case with , will admit for incision and drainage of pilonidal abscess.. Counseling: I had a detailed discussion with the patient and/or guardian regarding the historical points, exam findings, and any diagnostic results supporting the discharge/admit diagnosis, radiology results, the need for further work-up and treatment in the hospital. 06/05 10:23 Order name: CBC with Diff; Complete Time: 12:19 rn 06/05 10:23 Order name: Basic Metabolic Panel; Complete Time: 12:19 rn 06/05 10:34 Order name: Extremity Nonvascular Limited; Complete Time: 12:19 EDMS 06/05 10:23 Order name: IV Start; Complete Time: 11:49 rn Administered Medications: 12:02 Drug: Clindamycin IVPB 600 mg IVPB once over 30 mins; (mix in 50 mL) Route: IVPB; ld1 Infused Over: 30 mins; Site: right antecubital; 12:03 Drug: morphine IVP or IV 4 mg IVP once over 4 mins Route: IVP; Infused Over: 4 mins; ld1 Site: right antecubital; Disposition Summary: 06/05/24 10:29 Hospitalization Ordered Notes: Hospitalization Status: Inpatient Admission rn Provider: Hiro Martinez rn [facility] rn Condition: Stable rn Problem: new rn Symptoms: have worsened rn Bed/Room Type: Standard rn Room Assignment: 205(06/05/24 12:10) [id number] Diagnosis - Pilonidal cyst with abscess rn Forms: - Medication Reconciliation Form rn - SBAR form rn - Leadership Thank You Letter rn Signatures: Dispatcher VishHo Herlinda Zapata RN RN iw Isma Emerson MD MD rn Sims, Lauren, RN RN ld1 Floridalma Mcgill jr12 Corrections: (The following items were deleted from the chart) 10: 10:24 CBC+H.LAB.BRZ ordered. EDMS EDMS 10: 10:24 BASIC METABOLIC PANEL+C.LAB.BRZ ordered. EDMS EDMS 10:28 10:26 Constitutional: Negative for fever, chills, and weight loss, Abdomen/GI: Negative rn for abdominal pain, nausea, vomiting, diarrhea, and constipation, Back: Positive for pain and swelling above gluteal cleft to the lower back Skin: Positive area approximately 3 cm of fluctuance and tenderness just left of superior gluteal cleft rn 12:10 10:29 rn [id number]
[2024-06-05] MEDS ORDERED: CLINDAMYCIN 600MG/D5W 50 ML IV ONE (10:43)
[2024-06-05] MEDS ORDERED: MORPHINE 4 MG/ML SYR ONE (10:43)
[2024-06-05 11:52] LABS: Absolute Basophils 0.1 K/uL (0-0.5); Absolute Eosinophils 0.1 K/uL (0-0.5); Absolute Lymphocytes (CBC) 1.6 K/uL (0.7-4.9); Absolute Monocytes 0.5 K/uL (0.1-1.3); Basophils % 0.8 % (0-1.3); Eosinophils % 1.7 % (0-4.4); Hematocrit 45.3 % (39.6-49.0); Hemoglobin 15.5 g/dL (13.6-17.9); MCH 30.7 pg (27.0-35.0); MCHC 34.1 g/dL (32.0-36.0); MCV 89.9 fL (80-100); MPV 8.1 fL (7.6-11.3); Monocytes % 7.6 % (3.3-12.3); Neutrophils % 64.9 % (41.7-73.7); Platelets 234 thou/uL (152-406); RBC Red Blood Cell Count 5.04 M/uL (4.33-5.43); Red Cell Distribution Width 13.7 % (12.1-15.2)
[2024-06-05 12:01] LABS: Anion Gap 6.8 mEq/L (5.0-15.0); Potassium 3.8 mEq/L (3.5-5.1)
--- NOTE | 2024-06-05 12:10 | RAD REPORT ---
EXAM DESCRIPTION: US - Extremity Nonvascular Limited - 06/05/2024 10:52 am CLINICAL HISTORY: Cyst on tailbone COMPARISON: None. TECHNIQUE: Real-time sonographic evaluation of the lower buttocks, overlying the tailbone, was perfo rmed. FINDINGS: Is subcutaneous heterogeneous hypoechoic collection with septations and debris as well as some soft tissue components demonstrating mild vascularity is present near the gluteal cleft, in the area of concern overlying the tailbone. This measures 2.6 x 1.8 x 1.6 cm in greatest dimensions. A sm all tract extends superficially within the dermis, not reaching the skin surface. . IMPRESSION: Findings suggesting a 2.6 cm heterogeneous collection, may represent an early abscess or phlegmon. Small tract extends from the collection superficially within the dermis, not reaching the skin surface.
[2024-06-05] MEDS ORDERED: ONDANSETRON 4 MG/2 ML VIAL IV PRN (12:41)
[2024-06-05 13:20] VITALS: BMI 34.7
[2024-06-05] MEDS: MORPHINE 4 MG/ML SYR IV PRN (15:40)
[2024-06-05] MEDS: HYDROCODONE/APAP 7.5/325 MG TAB PO PRN (16:43)
[2024-06-05] MEDS: CLINDAMYCIN 600MG/D5W 50 ML IV SCH (16:44)
--- NOTE | 2024-06-05 23:40 | HP ---
Date of Admission: 06/05/2024 Reason For Service: Perisacral tenderness, infected pilonidal cyst with abscess. History Of Present Illness: This is a case of a 28-year-old patient with a perisacral tenderness to the point that he is barely can sit. He has he say he has pilonidal cyst, drains, but nev er removed. At this time, he is getting to the point that he needs some help and the pain is difficult to control, the ER called me for admission and probably do this under anesthesia. So, the patient denies any trauma. Review of Systems: Denies any dysuria, hematuria, hematochezia, or melena. Denies any recent travel out of the country. Denies any shortness of breath or any chest pain. Ten points otherwise unremarkable. Allergies: SULFA. Past Surgical History: I and D, pilonidal cyst. Social History: He does not smoke. He does not drink alcohol. Family History: Noncontributory. Physical Examination: Vital Signs: Reviewed. General: The patient is awake, alert. HEENT: Pupils are equal and reactive. Anicteric. Neck: Supple. Chest: Clear. Heart: S1, S2. Abdomen: Soft and depressible. No guarding or rebound. Back: No step-off tenderness. Sacral area shows what looked like a cellulitis. perianal area is not involved. Genitalia is not involved. Extremities: Good capillary refill. Good peripheral pulses. Neuro: Cranial nerves 2 through 12 were grossly within normal limits. Laboratory Data: Blood work shows WBC count of 6.2, hemoglobin of 15.5, and platelets of 234. Potas sium of 3.8, creatinine is 0.92. Extremity ultrasound shows findings suggesting of a 2.6 collection, probably an early abscess or phlegmon over the area of the tailbone. Assessment: This is a 28-year-old patient with infected pilonidal cyst and abscess, has cellulitis. The wide excision of infected pilonidal cyst and drainage of an abscess fully explained, which inclu de, but not limited to infection, bleeding, damage to adjacent structures, anesthesia complication, r ecurrence, myocardial infarction, and even . He also understands this may not relieve the sympt oms. He might need more than one surgical intervention. He also understands he will require a wound care. Obviously, he is very tender. He wants to be done under anesthetic too because of the pain. So, we are going to keep him n.p.o. after midnight, started the antibiotics. LETY Voice ID: [id number]
[2024-06-06 06:08] LABS: Absolute Eosinophils 0.1 K/uL (0-0.5); Absolute Lymphocytes (CBC) 1.9 K/uL (0.7-4.9); Absolute Monocytes 0.6 K/uL (0.1-1.3); Absolute Neutrophil 4.1 K/uL (1.8-8.0); Basophils % 0.7 % (0-1.3); Eosinophils % 1.2 % (0-4.4); Hematocrit 40.7 % (39.6-49.0); Hemoglobin 14.1 g/dL (13.6-17.9); Lymphocytes % 28.6 % (15.3-44.8); MCH 31.1 pg (27.0-35.0); MCHC 34.7 g/dL (32.0-36.0); MCV 89.5 fL (80-100); MPV 7.8 fL (7.6-11.3); Monocytes % 8.4 % (3.3-12.3); Neutrophils % 61.1 % (41.7-73.7); Nucleated Red Blood Cells % 0.2 % (0-0); Platelets 223 thou/uL (152-406); RBC Red Blood Cell Count 4.55 M/uL (4.33-5.43); Red Cell Distribution Width 13.7 % (12.1-15.2)
[2024-06-06 06:11] LABS: Anion Gap 4.7 mEq/L (5.0-15.0); Potassium 3.7 mEq/L (3.5-5.1)
[2024-06-06] MEDS ORDERED: propofoL 200 MG/20 ML VIAL IV ONE ×2 (11:32→12:57)
[2024-06-06] MEDS ORDERED: LIDOCAINE 1% MPF 5 ML VIAL ONE ×2 (11:32→12:57)
[2024-06-06] MEDS ORDERED: FENTANYL CITR 100 MCG/2 ML ONE (11:34)
[2024-06-06] MEDS ORDERED: MIDAZOLAM HCL 2 MG/2 ML INJ ONE ×2 (11:34→13:00)
[2024-06-06] MEDS ORDERED: ROCURONIUM 50 MG/5 ML VIAL IV ONE ×2 (11:34→12:57)
[2024-06-06] MEDS ORDERED: Ringers Lactate 1,000 ML IV ONE (11:55)
[2024-06-06] MEDS ORDERED: FENTANYL CITR 250 MCG/5 ML ONE (12:59)
[2024-06-06] MEDS ORDERED: KETOROLAC 30 MG/ML INJ ONE (12:59)
[2024-06-06] MEDS ORDERED: METHYLENE BLUE 1% 10 ML VIAL ONE (13:04)
[2024-06-06] MEDS ORDERED: NEOSTIGMINE 1 MG/ML -10 ML VIAL ONE (13:52)
[2024-06-06] MEDS ORDERED: GLYCOPYRROLATE 0.2 MG/ML SYR ONE (13:52)
--- NOTE | 2024-06-06 14:00 | P.BOP ---
Preoperative diagnosis: infected pilonidal cyst Postoperative diagnosis: same Primary procedure: Excisional biopsy of infected pilonidal cyst with abscess drainage Secondary procedure: [id number] Estimated blood loss: <10cc Specimen: cyst and abscess culture Findings: see dicta Anesthesia: General Complications: None Transferred to: Recovery Room Condition: Good
[2024-06-06] MEDS: ONDANSETRON 4 MG/2 ML VIAL ONE (14:24)
[2024-06-06 14:52] VITALS: BP 149/87; TEMP 97.2; O2SAT 96
--- NOTE | 2024-06-11 17:05 | OP ---
Surgeon: Hiro Martinez MD Preoperative Diagnosis: Infected pilonidal cyst. Postoperative Diagnosis: Infected pilonidal cyst. Procedure: Excisional biopsy of infected pilonidal cyst with abscess drainage about 6 x 5 x 3 cm. Estimated Blood Loss: Less than 10 cc. Specimen: Cyst and abscess culture. Findings: Cyst with the abscess purulent discharge. Anesthesia: General plus local. Indication: This is a case of a male, who came to us with a large and tender pilonidal cyst with an abscess. He came to the ER, temporarily moved, had to be admitted to the hospital for pain control a nd I was called also to see if I can help him with the excision of this infected pilonidal cyst. Do strauss is not his first time he has this problem. He is trying to treat it with antibiotics in the past a nd I and D's, but at this time it is just a little bit too large. So the benefits, alternatives, and risks of excisional biopsy of infected pilonidal cyst fully explained, which include, but not limite d to, infection, bleeding, damage to adjacent structures, anesthesia complication, nonhealing wound, MT, and even . He also understands this may not relieve any symptoms. He might need more than one surgical intervention. He also understands he will need the wound care. He signed a consent. Description Of Procedure: The area of concern was marked by me and the patient in the holding room. Patient was brought to the operating room, placed in supine position. Anesthesia was done without c omplication. The patient was placed in prone position with proper protection. Perisacral area was p repped and draped in the usual sterile fashion. Time-out was called and methylene blue was placed ov er the area to delineate the collection through one of the openings. Then, after that, a wedge incis ion was made in that region and all the way down to the coccyx and sacrum. We proceeded to remove th is tissue that is blue. That was a large area about where there is an abscess with pus. The area wa s cultured. Area was drained. Irrigation was done. Hemostasis was obtained. The patient was sent to recovery in stable condition after the area was packed with wet-to-dry dressing. Local anesthetic was applied. Sponge counts and instrument counts were correct. Patient tolerated the procedure wel l. Patient sent to recovery in stable condition. HM/MODL Voice ID: [id number] Report ID: [id number]
== END 2024-06-06 15:55 | disposition home or self-care (01) | DRG 603 ==
LOC: ER 09:37 → ERHOLD 12:00 → 2ND 12:22
PROVIDERS: ADMIT Surgery; ATTEND Surgery
PROC: 0J990ZZ Drainage of Buttock Subcutaneous Tissue and Fascia, Open Approach (ICD-10-PCS; principal; 2024-06-05)
PROC: 0JB90ZX Excision of Buttock Subcutaneous Tissue and Fascia, Open Approach, Diagnostic (ICD-10-PCS; 2024-06-05)
DX: L05.01 Pilonidal cyst with abscess (principal); L03.317 Cellulitis of buttock; Z88.2 Allergy status to sulfonamides
CPT/HCPCS: 36415; 76882; 80048; 85025; 87070; 87075; 87185; 87205; 88304; 96374; 96375; 99285; J2001; J2250; J2405; J2704; J2710; J3010; J7120

== ENCOUNTER 2025-08-10 18:59 | Emergency (ER) | payer OTHER, SELFPAY ==
[2025-08-10] MEDS ORDERED: KETOROLAC 30 MG/ML INJ ONE (19:10)
--- NOTE | 2025-08-10 19:53 | RAD REPORT ---
Extremity Venous Uni [employer] CLINICAL INDICATION: Male, 29 years old.PAIN RIGHT TECHNIQUE: Complete duplex sonography of the lower extremity veins was performed of the affected limb . The examination included compression for vein patency, color Doppler imaging and flow augmentation in response to distal compression of the distal external iliac, common femoral, femoral, popliteal, peroneal, tibial and great saphenous veins. [id number]. COMPARISON: No prior exams FINDINGS: Duplex sonography imaging demonstrates all deep veins examined to be fully compressible with spontane ous, phasic and augmented flow in the affected limb. Large popliteal fossa lymph nodes, the largest measuring 2.6 x 1.9 x 1 cm. IMPRESSION: No evidence of deep venous thrombosis in the right lower extremity. Pathologically enlarged lymph node in the popliteal fossa. Though possibly reactive, malignancy shoul d be excluded.
--- NOTE | 2025-08-10 19:56 | ER ---
Nurse's Notes [facility] Name: Javier Castillo Age: 29 yrs Sex: Male : 1995 Arrival Date: 08/10/2025 Time: 18:59 Bed 12 Private MD: Diagnosis: Pain in right knee;Enlarged lymph node in popliteal fossa Presentation: 08/10 19:04 Chief complaint: Patient states: since yesterday patient has had right posterior knee me1 pain. Pain level is 6/10, at worst 9/10. Denies injury. Coronavirus screen: Vaccine status: Patient reports receiving the 2nd dose of the covid vaccine. Ebola Screen: No symptoms or risks identified at this time. Initial Sepsis Screen: Does the patient meet any 2 criteria? HR > 90 bpm. Does the patient have a suspected source of infection? No. Patient's initial sepsis screen is negative. Risk Assessment: Do you want to hurt yourself or someone else? Patient reports no desire to harm self or others. Onset of symptoms was August 09, 2025. 19:04 Method Of Arrival: [place] [facility] [place] 19:04 Acuity: MOIRA 4 me1 Triage Assessment: 19:06 General: Appears uncomfortable, well groomed, well developed, well nourished, Behavior me1 is calm, cooperative, appropriate for age. Pain: Complains of pain in posterior aspect of right knee Pain currently is 6 out of 10 on a pain scale. Quality of pain is described as aching, Pain began 1 day ago. Is continuous. EENT: No signs and/or symptoms were reported regarding the EENT system. Neuro: Level of Consciousness is awake, alert, obeys commands, Oriented to person, place, time, situation, Appropriate for age. Cardiovascular: Patient's skin is warm and dry. Respiratory: Airway is patent Respiratory effort is even, unlabored, Respiratory pattern is regular, symmetrical. GI: No signs and/or symptoms were reported involving the gastrointestinal system. : No signs and/or symptoms were reported regarding the genitourinary system. Derm: Skin is intact, is healthy with good turgor, Skin is normal. Musculoskeletal: Circulation, motion, and sensation intact. Range of motion: limited in right knee Reports pain in posterior aspect of right knee. Historical: - Allergies: 19:06 Sulfa (Sulfonamide Antibiotics); me1 - PMHx: 19:06 Asthma; me1 - PSHx: 19:06 cyst removal (Unknown); me1 - Immunization history:: Adult Immunizations up to date. - Infectious Disease History:: Denies. - Social history:: Smoking status: Reported history of juuling and/or vaping. Screenin:16 [facility] ED Fall Risk Assessment (Adult) History of falling in the last 3 months, kb4 including since admission No falls in past 3 months (0 pts) Confusion or Disorientation No (0 pts) Intoxicated or Sedated No (0 pts) Impaired Gait Yes (1 pt) Mobility Assist Device Used No (0 pt) Altered Elimination No (0 pt) Score/Fall Risk Level 0 - 2 = Low Risk. Abuse screen: Denies threats or abuse. Denies injuries from another. Nutritional screening: No deficits noted. Tuberculosis screening: No symptoms or risk factors identified. Assessment: 19:17 General: Appears in no apparent distress. uncomfortable, Behavior is calm, cooperative. kb4 Pain: Complains of pain in right leg and posterior aspect of right knee. Musculoskeletal: Range of motion: limited in right knee Reports pain in posterior aspect of right knee. 20:30 Reassessment: Patient appears in no apparent distress at this time. Patient and/or al5 family updated on plan of care and expected duration. Pain level reassessed. Patient is alert, oriented x 3, equal unlabored respirations, skin warm/dry/pink. Patient states feeling better. Vital Signs: 19:04 BP 137 / 75; Pulse 110; Resp 17; Temp 98.2; Pulse Ox 98% ; Weight 113.4 kg; Height 5 me1 ft. 9 in. ; Pain 6/10; 20:30 BP 110 / 80; Pulse 87; Resp 16; Pulse Ox 98% on R/A; al5 19:04 Body Mass Index 36.92 (113.40 kg, 175.26 cm) me1 19:04 Pain Scale: Adult pa1 ED Course: 19:01 Patient arrived in ED. mr 19:02 Jina Soto F[facility]-C [facility] kb 19:02 Bill Bradshaw MD is Attending Physician. kb 19:05 Ernestine Norris, MAR is Primary Nurse. kb4 19:06 Triage completed. me1 19:06 Arm band placed on Patient placed in an exam room. me1 19:16 Patient has correct armband on for positive identification. kb4 19:42 US Extremity Venous Unilateral Ltd In Process Unspecified. EDMS 20:30 No provider procedures requiring assistance completed. Patient did not have IV access al5 during this emergency room visit. 20:31 Provided Education on: discharge follow up, medications. al5 Administered Medications: 19:14 Drug: Ketorolac IM 30 mg IM once Route: IM; Site: right deltoid; kb4 20:31 Follow up: Response: No adverse reaction; Pain is decreased al5 Medication: 20:30 VIS not applicable for this client. al5 Outcome: 19:55 Discharge ordered by MD. kb 20:31 Discharged to home ambulatory, al5 20:31 Condition: good 20:31 Discharge instructions given to patient, Instructed on discharge instructions, follow up and referral plans. medication usage, Demonstrated understanding of instructions, follow-up care, medications, Prescriptions given X 2, 20:31 Patient left the ED. al5 Signatures: Dispatcher [employer] EDMS Jina Soto, MEASURING MACHINE TENDER-C MEASURING MACHINE TENDER-Ckb Valentina Stewart, Reg Reg mr Sharon Rivera, RN RN me1 Lucy Marrufo RN RN al5 Ernestine Norris RN RN kb4
--- NOTE | 2025-08-10 19:56 | EDPHYS ---
Physician Documentation [facility] Name: Javier Castillo Age: 29 yrs Sex: Male : 1995 Arrival Date: 08/10/2025 Time: 18:59 Bed 12 Private MD: ED Physician Bill Bradshaw HPI: 08/10 19:07 This 29 yrs old Male presents to ER via Ambulatory with complaints of Knee kb Pain. 19:07 Pt is a 29 year old male who presents for pain to posterior right knee that started kb after work yesterday. Denies injury or trauma, but reports increased activity at work yesterday. . Historical: - Allergies: 19:06 Sulfa (Sulfonamide Antibiotics); me1 - PMHx: 19:06 Asthma; me1 - PSHx: 19:06 cyst removal (Unknown); me1 - Immunization history:: Adult Immunizations up to date. - Infectious Disease History:: Denies. - Social history:: Smoking status: Reported history of juuling and/or vaping. ROS: 19:05 Constitutional: As per HPI kb Exam: 19:05 Constitutional: This is a well developed, well nourished patient who is awake, alert, kb and in no acute distress. Head/Face: Normocephalic, atraumatic. ENT: Moist Mucous membranes Respiratory: Respirations even and unlabored. No increased work of breathing. Talking in full sentences Skin: Warm, dry with normal turgor. Normal color. Neuro: Awake and alert, GCS 15, oriented to person, place, time, and situation. 19:05 Musculoskeletal/extremity: Extremities: grossly normal except: noted in the posterior aspect of right knee: pain, tenderness, ROM: limited active range of motion due to pain, Circulation is intact in all extremities. Sensation intact. Weight bearing: able to fully bear weight, Vital Signs: 19:04 BP 137 / 75; Pulse 110; Resp 17; Temp 98.2; Pulse Ox 98% ; Weight 113.4 kg; Height 5 me1 ft. 9 in. ; Pain 6/10; 20:30 BP 110 / 80; Pulse 87; Resp 16; Pulse Ox 98% on R/A; al5 19:04 Body Mass Index 36.92 (113.40 kg, 175.26 cm) me1 19:04 Pain Scale: Adult me1 MDM: 19:02 Medical Screening Exam initiated kb 19:07 Differential diagnosis: sprain, strain, dvt, nogueira's cyst. Data reviewed: vital signs, kb nurses notes. 19:37 Counseling: I had a detailed discussion with the patient and/or guardian regarding the kb historical points, exam findings, and any diagnostic results supporting the discharge/admit diagnosis, radiology results, the need for outpatient follow up, a family practitioner, to return to the emergency department if symptoms worsen or persist or if there are any questions or concerns that arise at home. 08/10 19:05 Order name: US Extremity Venous Unilateral Ltd; Complete Time: 19:54 kb Administered Medications: 19:14 Drug: Ketorolac IM 30 mg IM once Route: IM; Site: right deltoid; kb4 20:31 Follow up: Response: No adverse reaction; Pain is decreased al5 Disposition Summary: 08/10/25 19:55 Discharge Ordered Notes: Location: Home kb Condition: Stable kb Diagnosis - Pain in right knee kb - Enlarged lymph node in popliteal fossa kb Followup: kb - With: Emergency Department - When: As needed - Reason: Worsening of condition Followup: kb - With: Private Physician - When: 2 - 3 days - Reason: Recheck today's complaints, Continuance of care, Re-evaluation by your physician Discharge Instructions: - Discharge Summary Sheet kb - Knee Sprain, Adult, [id number] kb - Lymphadenopathy kb Forms: - Medication Reconciliation Form kb - Antibiotic Education kb - Prescription Opioid Use kb - Patient Portal Instructions kb - Leadership Thank You Letter Prescriptions: - Diclofenac Sodium 75 mg Oral tablet, delayed release (enteric coated) - take 1 tablet ORAL route 2 times per day As needed; 30 tablet; Refills: 0, kb Product Selection Permitted - orphenadrine citrate 100 mg Oral Tablet Sustained Release - take 1 tablet ORAL route 2 times per day As needed; 20 tablet; Refills: 0, kb Product Selection Permitted Signatures: Dispatcher [employer] Jina Singh FNP-C FNP-Sharon Pereyra RN RN me1 Ernestine Norris RN RN kb4 Lucy Marrufo RN al5
[2025-08-10 20:40] VITALS: TEMP 98.2; O2SAT 98
[2025-08-10 20:41] VITALS: BP 110/80
== END 2025-08-10 20:31 | disposition home or self-care (01) ==
LOC: ER 18:59
DX: S83.91XA Sprain of unspecified site of right knee, initial encounter (principal); X58.XXXA Exposure to other specified factors, initial encounter; R59.0 Localized enlarged lymph nodes
CPT/HCPCS: 93971; 96372; 99284; J1885